=== PATIENT | male | born 1960 | race Caucasian/White ===

== ENCOUNTER 2023-07-22 12:25 | Outpatient (OUT) | payer OTHER, SELFPAY ==
--- NOTE | 2023-07-22 12:51 | CT_ITS ---
[address] [address] Patient Name: ASHLEY BERKOWITZ MRN: [id number] date: 1960 Sex: M Assigned Patient Location: CT Current Patient Location: CT Accession/Order Number: [id number] Exam Date: 07/22/2023 13:10 Report Date: 07/22/2023 14:39 At the request of: NON-STAFF PHYSICIAN Procedure: CT angio neck EXAMINATION: CT angio neck HISTORY: Stenosis of right carotid artery I65.21 COMPARISON: No relevant comparison available. TECHNIQUE: Multiplanar CT imaging without and with IV contrast. Multi-planar/3-D imaging to optimize visualization of vascular anatomy. Percent stenosis is based on NASCET criteria. Dose reduction techniques were achieved by using automated exposure control and/or adjustment of mA and/or kV according to patient size and/or use of iterative reconstruction technique. FINDINGS: RIGHT INTERNAL CAROTID: Marked atherosclerotic narrowing of bulb and proximal ICA with near-complete occlusion within the proximal ICA. EXTERNAL CAROTID: No hemodynamically significant stenosis or dissection. COMMON CAROTID: No hemodynamically significant stenosis or dissection. VERTEBRAL: No hemodynamically significant stenosis or dissection. LEFT INTERNAL CAROTID: Moderate-marked atherosclerotic narrowing of bulb and proximal ICA. EXTERNAL CAROTID: No hemodynamically significant stenosis or dissection. COMMON CAROTID: No hemodynamically significant stenosis or dissection. VERTEBRAL: No hemodynamically significant stenosis or dissection. OTHER: Multilevel marked degenerative changes of cervical spine resulting in central canal and foramen narrowing. CT/CT angio neck IMPRESSION: 1. Marked atherosclerotic narrowing of right proximal internal carotid artery with greater than 70% stenosis (suspect closer to 90% stenosis). 2. Moderate-marked atherosclerotic narrowing of left proximal internal carotid artery; suspect 60-70%. Electronically authenticated by: BRIE TOVAR Date: 07/22/2023 14:39
[2023-07-22 12:55] LABS: Estimated GFR (African America >60 (>=60); Estimated GFR (Non-African Ame >60 (>=60)
== END 2023-07-22 12:26 | disposition home or self-care (01) ==
LOC: CT 12:25
PROVIDERS: PCP Internal Medicine
DX: Z01.818 Encounter for other preprocedural examination (principal); I65.21 Occlusion and stenosis of right carotid artery
CPT/HCPCS: 36415; 70498; 82565; Q9967

== ENCOUNTER 2023-11-23 09:32 | Outpatient (OUT) | payer OTHER, SELFPAY ==
--- OUTSIDE RECORDS SUMMARY | 2023-11-23 09:50 | XMS_ITS | CCD ---
Author Organization [facility] Care Team Providers Care Supervisor [address] Name Role Phone DO Young Kruse Jr Attending Provider DO Young Kruse Jr Attending Provider NO FAMILY, PHYSICIAN Primary Care Provider Unava ilable Young Kruse Jr Admitting Unavailable NO FAMILY, PHYSICIAN Primary Care Unavailable Young Kruse Jr Attending Unavailable NO FAMILY, PHYSICIAN Primary Care Unavailable Young Kruse Jr Attending Unavailable Young Kruse Jr Admitting Unavailable NO FAMILY, PHYSICIAN Primary Care Unavailable Young Kruse Jr Attending Unavailable Young Kruse Jr Admitting Unavailable ANTONI, HARDIK Garza Attending Unavailable HILL, HARDIK Garza Referring Unavailable HILL, HARDIK Garza Attending Unavailable HILL, HARDIK Garza Referring Unavailable STOIBERMAIRA Referring Unavailable VALEDANDRE Attending Unavailable HILL, HARDIK Garza Attending Unavailable HILL, HARDIK Garza Referring Unavailable HILL, HARDIK Garza Attending Unavailable HILL, HARDIK Garaz Referring Unavailable CLINT, ADRIENNE Morley Attending Unavailable ADRIENNE JARAMILLO Referring Unavailable VALEDANDRE RINCON Attending Unavailable NAZZAL, GABRIELA Referring Unavailable MARYELLEN LOYOLA Attending Unavailable NABERNA, GABRIELA Attending Unavailable PARTH TESFAYE Referring Unavailable PARTH TESFAYE Referring Unavailable NAZZAL, GABRIELA Admitting Unavailable NABERNA, GABRIELA Attending Unavailable TESFAYEPARTH BROOKE Referring Unavailable TESFAYEPARTH BROOKE Attending Unavailable MARYELLEN LOYOLA Attending Unavailable MARYELLEN LOYOLA Referring Unavailable NAZZAL, GABRIELA Referring Unavailable Medications Current Medications Medication Drug Class(es) Dates Sig (Normalized) Sig (Original) atorvastatin 10 mg oral tablet (2 sources) HMG-CoA Reductase Inhibitor Start: 08-30-2017 take 10 mg by mouth once daily Atorvastatin Active 10 MG PO Daily August 30, 2017 12:00am colchicine 0.6 mg oral tablet (2 sources) Start: 08-30-2017 take 1 tablet by mouth twice daily Colchicine (Gout) (Colcrys) 0.6 mg tablet Active 0.6 MG PO Twice daily August 30, 2017 12:00am dexamethasone 0.001 mg/mg / neomycin 0.0035 mg/mg / polymyxin b 10 unt/mg ophthalmic ointment (2 sources) Aminoglycoside Antibacterial, Polymyxin-class Antibacterial, Corticosteroid Start: 08-30-2017 take 1 [IU] into the eye(s) three times daily Neomycin-Polymyxi n B-Dexameth Active 1 UNIT OPHTHALMIC Three times daily August 30, 2017 12:00am indomethacin 75 mg extended release oral capsule (2 sources) Nonsteroidal Anti-inflammatory Drug Start: 08-30-2017 take 75 mg by mouth once daily Indomethacin Active 75 MG PO Daily August 30, 2017 12:00am latanoprost 0.05 mg/ml ophthalmic solution (2 sources) Prostaglandin Analog Start: 08-30-2017 take 1 drop(s) into the eye(s) once daily Latanoprost Active 1 DROPS OPHTHALMIC Daily August 30, 2017 12:00am lisinopril 30 mg oral tablet (2 sources) Angiotensin Converting Enzyme Inhibitor Start: 08-30-2017 take 30 mg by mouth once daily Lisinopril Active 30 MG PO Daily August 30, 2017 12:00am metFORMIN hydrochloride 500 mg oral tablet (2 sources) Biguanide Start: 08-30-2017 take 500 mg by mouth twice daily Metformin Active 500 MG PO Twice daily August 30, 2017 12:00am Timolol Maleate (2 sources) beta-Adrenergic Massimo Start: 08-30-2017 take 1 drop(s) into the eye(s) twice daily Timolol Maleate Active 1 DROPS OPHTHALMIC Twice daily August 30, 2017 12:00am Completed/Discontinued Medications Medication Drug Class(es) Dates Sig (Normalized) Sig (Original) ciprofloxacin 0.003 mg/mg ophthalmic ointment (2 sources) Quinolone Antimicrobial Start: 08-30-2017 End: 09-01-2017 Ciprofloxacin Hcl (Ciloxan) 0.3 % ointment Discontinued 1 APPLIC OPHTHALMIC Three times daily 3.5 2 August 30, 2017 12:00am September 01, 2017 12:01am ketorolac tromethamine 4 mg/ml ophthalmic solution (2 sources) Nonsteroidal Anti-inflammatory Drug, Cyclooxygenase Inhibitor Start: 08-30-2017 End: 09-02-2017 Ketorolac (Acular Ls) 0.4 % drops Discontinued 1 DROPS OPHTHALMIC Q6H 10 3 August 30, 2017 12:00am September 02, 2017 12:01am Problems Active Problems Problem Classification Problem Date Documented Da te Episodic/Chronic Occlusion or stenosis of precerebral arteries (4 sources) Occlusion and stenosis of bilateral carotid arteries; Translations: [Occlusion and stenosis of right carotid artery] Onset: 09-07-2023 Chronic Other lower respiratory disease (2 sources) Shortness of breath; Translations: [Shortness of breath] Onset: 09-07-2023 Episodic Peripheral and visceral atherosclerosis (2 sources) Peripheral vascular disease, unspecified; Translations: [Peripheral vascular disease, unspecified] Onset: 06-15-2023 Chronic Unclassified (1 source) Idiopathic chronic gout, right elbow, with tophus (tophi); Translations: [Idiopathic chronic gout, right elbow, with tophus (tophi)] Onset: 02-12-2023 Unclassified (1 source) Idiopathic chronic gout, left elbow, with tophus (tophi); Translations: [Idiopathic chronic gout, left elbow, with tophus (tophi)] Onset: 12-05-2022 Past or Other Problems Problem Classification Problem Date Documented Da te Episodic/Chronic Residual codes; unclassified (2 sources) Localized edema; Translations: [Localized edema] Onset: 06-15-2023 Episodic Results Test Name Value Interpretation Reference Range Facility 36on 11-20-2023 36 Maryellen said no, he will not require this. [facility] 36on 11-19-2023 36 Patient called to as k if he needed an antibiotic for teeth cleaning? His appointment is Thursday. 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 [facility] Telephoneon 11-19-2023 Telephone [phone] Ashley Berkowitz 1960 M Date Provider Department Center 11/19/[address] [facility] No family history on file [facility] Follow-Upon 10-08-2023 Follow-Up [id number] Ashley Berkowitz 1960 M Date Provider Department Center 10/08/[address] [facility] No family history on file Level of Service:14180 [place] POSTOP FOLLOW UP VISIT RELATED TO ORIGINAL PX Reason for Visit and Comments: Follow-up [310505] [facility] Clinical Supporton Clinical Support [id number] Ashley Berkowitz 1960 M Date Provider Department Center 10/07/2023 [id number] ULTRASOUND ROOM [facility] No family history on file [facility] Follow-Upon 09-17-2023 Follow-Up [id number] Ashley Berkowitz 1960 M Date Provider Department Center 09/17/2023 Venkat-MARYELLEN LOYOLA [facility] No family history on file Level of Service:95341 [place] POSTOP FOLLOW UP VISIT RELATED TO ORIGINAL PX [facility] 30on 09-08-2023 30 Problem: Pain - Adul t Goal: Verbalizes/displays adequate comfort level or baseline comfort level 09/08/2023 1640 by Milagros Vyas RN Outcome: Adequate for Discharge 09/08/2023 1133 by Milagros Vyas RN Outcome: Progressing Problem: Safety - Adult Goal: Free from fall injury 09/08/2023 1640 by Milagros Vyas RN Outcome: Adequate for Discharge 09/08/2023 1133 by Milagros Vyas RN Outcome: Progressing Problem: Discharge Planning Goal: Discharge to home or other facility with appropriate resources 09/08/2023 1640 by Milagros Vyas RN Outcome: Adequate for Discharge 09/08/2023 1133 by Milagros Vyas RN Outcome: Progressing Problem: Chronic Conditions and Co-morbidities Goal: Patient's chronic conditions and co-morbidity symptoms are monitored and maintained or improved 09/08/2023 1640 by Milagros Vyas RN Outcome: Adequate for Discharge 09/08/2023 1133 by Milagros Vyas RN Outcome: Progressing [facility] 30 Problem: Pain - Adul t Goal: Verbalizes/displays adequate comfort level or baseline comfort level Outcome: Progressing Problem: Safety - Adult Goal: Free from fall injury Outcome: Progressing Problem: Discharge Planning Goal: Discharge to home or other facility with appropriate resources Outcome: Progressing Problem: Chronic Conditions and Co-morbidities Goal: Patient's chronic conditions and co-morbidity symptoms are monitored and maintained or improved Outcome: Progressing [facility] 30 Daily Case Managemen t Update Multidisciplinary rounds have been completed. Barriers to Discharge: 09/07-POD 1 TCAR, had small hematoma post op and was also on cardene which has been weaned off. Would anticipate discharge in the next couple days-- should be no needs. cb Diet: Dietary Orders (From admission, onward) Start Ordered 09/07/231806 Regular Diet Diet effective now Comments: HOLD FOR NOW Question: Room Service? Answer: Yes 09/07/231806 Physician Expected Discharge Date: 09/08/2023 Discharge Delays: PT Six Click Score: 14 OT Six Click Score: PT Recommendations: OT Recommendations: New Consults: Consult Orders (From admission, onward) Start Ordered 09/07/231805 Inpatient Consult to SICU Once Provider: (Not yet assigned) Question Answer Comment [facility] SICU TEAM Reason for Consult? Hypertension following TCAR - SBP goal 100-140 Level of Consultation Consultation and Management 09/07/231804 Normal [facility] BASIC METABOLIC PANELon 08-28 Anion gap [Moles/Vol] 11 mmol/L Normal 7-20 [facility] Comment on above: Performed By: #### L [id number] #### [facility] (AKER) [address] [place] [address] Calcium [Mass/Vol] 8.2 mg/dL Low 8.6-10.3 [facility] Comment on above: Performed By: #### L [id number] #### [facility] (BEAKER) [address] [place] [address] Chloride [Moles/Vol] 105 mmol/L Normal 98-107 [facility] Comment on above: Performed By: #### L [id number] #### [facility] (BEAKER) [address] [place] [address] CO2 [Moles/Vol] 25 mmol/L Normal 21-31 [facility] Comment on above: Performed By: #### L [id number] #### [facility] (BEAKER) [address] [place] [address] Creatinine [Mass/Vol] 0.77 mg/dL Normal 0.70-1.30 [facility] Comment on above: Performed By: #### L [id number] #### [facility] ([facility]) [address] [place] [address] GLOMERULAR FILTRATION RATE ML/MIN/1.73 SQ M.PREDICTED 100.0 mL/min/1.73m*2 Normal >60.0 [facility] Comment on above: Result Comment: The [facility]???s estimated glomerular filtration rate (eGFR) will no longer include consideration of race in its calculation. The National Kidney Foundation???s eGFR Task Force developed new recommendations for the estimation of the glomerular filtration rate in the [place] They recommend immediate implementation of the new equation refit without the race variable in all laboratories because the calculation does not include race. In addition to not including race in the calculation and reporting, it included diversity in its development, and has acceptable performance characteristics and potential consequences that do not disproportionately affect any one group of individuals. Performed By: #### L [id number] #### [facility] ([facility]) [address] [place] [address] Glucose [Mass/Vol] 113 mg/dL High 70-100 [facility] Comment on above: Performed By: #### L [id number] #### [facility] ([facility]) [address] [place] [address] Potassium [Moles/Vol] 4.4 mmol/L Normal 3.5-5.1 [facility] Comment on above: Performed By: #### L [id number] #### [facility] ([facility]) [address] [place] [address] Sodium [Moles/Vol] 137 mmol/L Normal 136-145 [facility] Comment on above: Performed By: #### L [id number] #### [facility] ([facility]) [address] [place] [address] Urea nitrogen [Mass/Vol] 19 mg/dL Normal 7-25 [facility] Comment on above: Performed By: #### L [id number] #### [facility] ([facility] [address] [place] [address] UREA NITROGEN/CREATININE (MASS RATIO) IN SER/PLAS 24.7 Normal [facility] Comment on above: Performed By: #### L [id number] #### [facility] ([facility]) [address] [place] [address] CBCon 09-08-2023 Erythrocyte distribution width (RBC) [Ratio] 13.6 % Normal 11.5-15.0 [facility] Comment on above: Performed By: #### L [id number] #### [facility] ([facility]) [address] [place] [address] ERYTHROCYTE MEAN CORPUSCULAR HEMOGLOBIN CONCENTRATION (G/DL) BY AUTOMATED 33.9 g/dL Normal 32.0-35.0 [facility] Comment on above: Performed By: #### L [id number] #### [facility] ([facility]) [address] [place] [address] Hematocrit (Bld) [Volume fraction] 28.6 % Low 39.0-55.0 [facility] Comment on above: Performed By: #### L [id number] #### [facility] ([facility]) [address] [place] [address] Hemoglobin (Bld) [Mass/Vol] 9.7 g/dL Low 13.0-17.0 [facility] Comment on above: Performed By: #### L [id number] #### [facility] ([facility]) [address] [place] [address] MCH (RBC) [Entitic mass] 32.1 pg Normal 27.0-33.0 [facility] Comment on above: Performed By: #### L [id number] #### [facility] [address] [place] [address] MCV (RBC) [Entitic vol] 94.7 fL Normal 82.0-98.0 [facility] Comment on above: Performed By: #### L [id number] #### [facility] [address] [place] [address] PLATELETS (10*3/UL) IN BLOOD AUTOMATED COUNT 181 10*3/uL Normal 150-400 [facility] Comment on above: Performed By: #### L [id number] #### [facility] ([facility]) [address] [place] [address] RBC (Bld) [#/Vol] 3.02 10*6/uL Low 4.20-5.70 [facility] Comment on above: Performed By: #### L [id number] #### [facility] ([facility]) [address] [place] [address] WBC (Bld) [#/Vol] 5.58 10*3/uL Normal 4.00-10.60 [facility] Comment on above: Performed By: #### L [id number] #### [facility] ([facility]) [address] [place] [address] POCT GLUCOSE METER UNSOLICIT ED RESULTSon 09-08-2023 Glucose [Mass/Vol] 127 mg/dL High 70-105 [facility] Comment on above: Order Comment: Waive d Testing in the ED is performed under the ED CLIA certificate #[id number]. Result Comment: snov ak3 Performed By: #### L [id number] ####[facility] ([facility] [place] [address] Glucose [Mass/Vol] 110 mg/dL High 70-105 [facility] Comment on above: Order Comment: Waive d Testing in the ED is performed under the ED CLIA certificate #[id number]. Result Comment: snov ak3 Performed By: #### L [id number] #### [facility] ([facility]) [address] [place] [address] BASIC METABOLIC PANELon 08-28 Anion gap [Moles/Vol] 12 mmol/L Normal 7-20 [facility] Comment on above: Performed By: #### L [id number] #### [facility] ([facility] [address] [place] [address] Calcium [Mass/Vol] 8.7 mg/dL Normal 8.6-10.3 [facility] Comment on above: Performed By: #### L [id number] #### [facility] ([facility]) [address] [place] [address] Chloride [Moles/Vol] 105 mmol/L Normal 98-107 [facility] Comment on above: Performed By: #### L [id number] #### [facility] ([facility] [address] [place] [address] CO2 [Moles/Vol] 23 mmol/L Normal 21-31 [facility] Comment on above: Performed By: #### L [id number] #### [facility] ([facility] [address] [place] [address] Creatinine [Mass/Vol] 0.69 mg/dL Low 0.70-1.30 [facility] Comment on above: Performed By: #### L [id number] #### [facility] ([facility] [address] [place] [address] GLOMERULAR FILTRATION RATE ML/MIN/1.73 SQ M.PREDICTED 103.3 mL/min/1.73m*2 Normal >60.0 [facility] Comment on above: Result Comment: The [facility]???s estimated glomerular filtration rate (eGFR) will no longer include consideration of race in its calculation. The National Kidney Foundation???s eGFR Task Force developed new recommendations for the estimation of the glomerular filtration rate in the [place] They recommend immediate implementation of the new equation refit without the race variable in all laboratories because the calculation does not include race. In addition to not including race in the calculation and reporting, it included diversity in its development, and has acceptable performance characteristics and potential consequences that do not disproportionately affect any one group of individuals. Performed By: #### L [id number] #### [facility] ([facility]) [address] [place] [address] Glucose [Mass/Vol] 135 mg/dL High 70-100 [facility] Comment on above: Performed By: #### L [id number] #### [facility] ([facility] [address] [place] [address] Potassium [Moles/Vol] 4.4 mmol/L Normal 3.5-5.1 [facility] Comment on above: Performed By: #### L [id number] #### [facility] (BEAKER) [address] [place] [address] Sodium [Moles/Vol] 136 mmol/L Normal 136-145 [facility] Comment on above: Performed By: #### L [id number] #### [facility] (BEAKER) [address] [place] [address] Urea nitrogen [Mass/Vol] 13 mg/dL Normal 7-25 [facility] Comment on above: Performed By: #### L [id number] #### [facility] [address] [place] [address] UREA NITROGEN/CREATININE (MASS RATIO) IN SER/PLAS 18.8 Normal [facility] Comment on above: Performed By: #### L [id number] #### [facility] (BEAKER) [address] [place] [address] CBCon 09-07-2023 Erythrocyte distribution width (RBC) [Ratio] 13.2 % Normal 11.5-15.0 [facility] Comment on above: Performed By: #### L [id number] #### [facility] (BEAKER) [address] [place] [address] ERYTHROCYTE MEAN CORPUSCULAR HEMOGLOBIN CONCENTRATION (G/DL) BY AUTOMATED 34.3 g/dL Normal 32.0-35.0 [facility] Comment on above: Performed By: #### L [id number] #### [facility] (BEAKER) [address] [place] [address] Hematocrit (Bld) [Volume fraction] 33.5 % Low 39.0-55.0 [facility] Comment on above: Performed By: #### L [id number] #### [facility] (BEAKER) [address] [place] [address] Hemoglobin (Bld) [Mass/Vol] 11.5 g/dL Low 13.0-17.0 [facility] Comment on above: Performed By: #### L [id number] #### [facility] ([facility] [address] [place] [address] MCH (RBC) [Entitic mass] 32.0 pg Normal 27.0-33.0 [facility] Comment on above: Performed By: #### L [id number] #### [facility] ([facility] [address] [place] [address] MCV (RBC) [Entitic vol] 93.3 fL Normal 82.0-98.0 [facility] Comment on above: Performed By: #### L [id number] #### [facility] ([facility] [address] [place] [address] PLATELETS (10*3/UL) IN BLOOD AUTOMATED COUNT 193 10*3/uL Normal 150-400 [facility] Comment on above: Performed By: #### L [id number] #### [facility] ([facility] [address] [place] [address] RBC (Bld) [#/Vol] 3.59 10*6/uL Low 4.20-5.70 [facility] Comment on above: Performed By: #### L [id number] #### [facility] ([facility] [address] [place] [address] WBC (Bld) [#/Vol] 7.37 10*3/uL Normal 4.00-10.60 [facility] Comment on above: Performed By: #### L [id number] #### [facility] ([facility] [address] [place] [address] on 09-07-2023 --- Attestation signed by Nikos Manrique MD at 09/08/2023 6:43 AM I personally saw and examined the patient on the same date of service as resident/fellow Dr. Avalos. I discussed the findings and therapeutic plan with the resident/fellow Dr. Avalos. I agree with the documentation, except for any edits/updates below. Teaching Physician's Revisions: none Nikos Manrique MD Surgical Intensive Care Unit Consult Note Reason For Consult Post-operative management for TCAR Referring Physician: Dr. Butler Date and time of consultation: 09/07/23 Chief Complaint: Critical Care Management HPI: 63 y.o. year old male who presented with R carotid stenosis >90% of R ICA. Pt went to OR today for transcarotid arterial revascularization. No intraoperative complications. Neck circumference pre-op was 53 cm and now post-op is 55.5 cm due to a hematoma at the incision site. Patient was evaluated in the SICU - on 2 L NC, cardene ggt at 15 mg/hr, and c/o neck pain at the surgical site. However, hematoma has since decreased in size since initially coming out of the OR. Review of Systems: General: No For Chills, Fatigue, Fever, recent weight loss or weight gain Head/Neck: Dysphagia, no blurry vision, tinnitus, headache Respiratory: No Cough, Shortness Of Breath, Or Wheezing Cardiovascular: No Chest Pain Or Dyspnea On Exertion Gastrointestinal: No Abdominal Pain, Nausea, Vomiting Or Diarrhea. No Hematochezia Genito-Urinary: No Dysuria, Trouble Voiding, Or Hematuria Musculoskeletal: No Gait Disturbance, Joint Pain, Weakness Endocrine: no heat or cold intolerance, no hyperglycemia, no polyuria Neurological: No TIA Or Stroke Symptoms, Dizziness, Confusion, Numbness/Tingling, Visual Changes Psych: No history of depression, anxiety or substance abuse Dermatological: No Skin Changes, Rash, Nail Or Hair Changes History: The following information was obtained through chart review as the patient was unable to provide information due to emergency nature and/or medical condition Past Medical History: has a past medical history of Arthritis, Asthma, Blindness, Carotid stenosis, right, Diabetes mellitus (CMS/HCC), Family history of factor V Leiden mutation, Glaucoma, Gout, Hyperlipidemia, Hypertension, OA (osteoarthritis), Pneumonia, Seasonal allergies, Sleep apnea, and Venous insufficiency. Past Surgical History: has a past surgical history that includes Replacement total hip lateral position (Left); Elbow Debridement (Bilateral); Elbow surgery (Bilateral); Colonoscopy; Knee surgery (Right); and Liberty tooth extraction. Allergies: Patient has no known allergies. Home Medications: Medications Prior to Admission Medication Sig Dispense Refill Last Dose allopurinol (Zyloprim) 100 mg tablet TAKE 2 TABLETS BY MOUTH IN THE MORNING Past Week aspirin 81 mg EC tablet Take 81 mg by mouth in the morning. Past Week clopidogrel (Plavix) 75 mg tablet Take 75 mg by mouth in the evening. Past Week latanoprost (Xalatan) 0.005 % ophthalmic solution Administer 1 drop into both eyes at bedtime. 09/06/2023 lisinopril 30 mg tablet Take 30 mg by mouth in the morning. Past Week metFORMIN (Glucophage) 500 mg tablet Take 500 mg by mouth with breakfast and with evening meal. Past Week rosuvastatin (Crestor) 10 mg tablet 10 mg in the morning. Past Week Social History: reports that he has never smoked. He has quit using smokeless tobacco. His smokeless tobacco use included snuff. He reports current alcohol use. He reports that he does not currently use drugs. Family History: pulled available information in [facility] from previous visits No family history on file. Objective Vitals: BP: (167)/(79) 167/79 (09/06 934) Temp: [36.2 ???C (97.2 ???F)] 36.2 ???C (97.2 ???F) (09/06 934) Temp Source: Temporal (09/06 934) Heart Rate: [62] 62 (09/06 934) Resp: [14] 14 (09/06 934) SpO2: [99 %] 99 % (09/06 934) Height: [188 cm (6' 2 )] 188 cm (6' 2 ) (06/10 0935) Weight: [120 kg (265 lb 6.9 oz)] 120 kg (265 lb 6.9 oz) (09/06 0935) No data recorded No intake/output data recorded. Physical Exam: General: Awake, Alert, and No acute distress Head: Pt tolerating oral secretions Eyes: PERRL EOMI Neurologic: Alert And Oriented to self, place and time, Moving Extremities and Following Commands, CN 2-12 Grossly Intact, and GCS 15 Neck: Hematoma to R side of neck at incision site Lungs: Clear to Auscultation Bilaterally With Normal Work Of Breathing . Pt on 2L of O2 per NC Chest Wall: Chest Rise Symmetrical Cardiovascular: Regular rate and rhythm : Sofia in place draining yellow urine Skin: Warm And Dry and Normal For Ethnicity Labs: Recent Results (from the past 12 hour(s)) POCT glucose meter Collection Time: 09/07/23 9:45 AM Result Value Ref Ra (more content not included)... Normal [facility] HP [facility] Vascular Surgery HISTORY & PHYSICAL History of Present Illness: Ashley Berkowitz is a 63 y.o. male with a PMH of right carotid artery stenosis with blindness in the right eye. Patient found to have >90% stenosis of the right ICA. Patient presents for a transcarotid arterial revascularization, possible endarterectomy No issue since seen in clinic. Patient has been taking plavix for past week Review of Systems Constitutional: Negative for activity change, appetite change, fatigue and fever. Eyes: Positive for visual disturbance. Respiratory: Negative for apnea, chest tightness and shortness of breath. Cardiovascular: Negative for chest pain, palpitations and leg swelling. Gastrointestinal: Negative for abdominal distention, abdominal pain, constipation, diarrhea, nausea and vomiting. Skin: Negative for color change, pallor and rash. Past Medical History: Diagnosis Date Arthritis Asthma Blindness right eye Carotid stenosis, right Diabetes mellitus (CMS/HCC) Family history of factor V Leiden mutation patient unsure if he has Glaucoma Gout Hyperlipidemia Hypertension OA (osteoarthritis) Pneumonia Seasonal allergies Sleep apnea Venous insufficiency Past Surgical History: Procedure Laterality Date COLONOSCOPY ELBOW DEBRIDEMENT Bilateral ELBOW SURGERY Bilateral KNEE SURGERY Right REPLACEMENT TOTAL HIP LATERAL POSITION Left WISDOM TOOTH EXTRACTION No Known Allergies Current Facility-Administered Medications: lactated Ringer's infusion, 30 mL/hr, intravenous, Continuous, Krystian Carey, DO Insert peripheral IV, , , Once AND Saline lock IV, , , Once AND sodium chloride flush 10 mL, 10 mL, intravenous, q8h PRN, Krystian Carey, Social History Socioeconomic History Marital status: Spouse name: Not on file Number of children: Not on file Years of education: Not on file Highest education level: Not on file Occupational History Not on file Tobacco Use Smoking status: Never Smokeless tobacco: Former Types: Snuff Substance and Sexual Activity Alcohol use: Yes Drug use: Not Currently Sexual activity: Not on file Other Topics Concern Not on file Social History Narrative Not on file Social Determinants of Health Financial Resource Strain: Not on file Food Insecurity: Not on file Transportation Needs: Not on file Physical Activity: Not on file Stress: Not on file Social Connections: Not on file Intimate Partner Violence: Unknown (05/25/2023) [place] Safety [employer] [place] Fear of Current or Ex-Partner: Not on file Emotionally Abused: Not on file Physically Abused: Not on file Sexually Abused: Not on file Physically or Sexually Abused: Not on file Housing Stability: Not on file No family history on file. Physical Exam: Vital Signs: There were no vitals taken for this visit. Admission Weight: Physical Exam Constitutional: General: He is not in acute distress. Appearance: Normal appearance. He is not ill-appearing. HENT: Head: Normocephalic and atraumatic. Cardiovascular: Rate and Rhythm: Normal rate and regular rhythm. Pulmonary: Effort: Pulmonary effort is normal. No respiratory distress. Abdominal: General: Abdomen is flat. Palpations: Abdomen is soft. Skin: General: Skin is warm and dry. Neurological: General: No focal deficit present. Mental Status: He is alert and oriented to person, place, and time. Labs: Lab Results Component Value Date WBC 6.38 08/20/2023 HGB 12.9 (L) 08/20/2023 HCT 38.9 (L) 08/20/2023 MCV 94.6 08/20/2023 PLT 232 08/20/2023 Lab Results Component Value Date CALCIUM 9.6 08/20/2023 NA 134 (L) 08/20/2023 K 4.4 08/20/2023 CO2 25 08/20/2023 CL 101 08/20/2023 BUN 19 08/20/2023 CREATININE 0.83 08/20/2023 No results found for: AMYLASE No results found for: LIPASE No results found for: ALT , AST , GGT , ALKPHOS , LABBILI Lab Results Component Value Date INR 1.01 08/20/2023 Imaging: CT transfer of outside films This order has been auto-finalized and does not contain a result. Assessment: Ashley Berkowitz is a 63 y.o.male with symptomatic right ICA stenosis >90%. Patient presents for elective transcarotid arterial revascularization, possible endarterectomy Plan: Right TCAR, possible CEA Mohsen Helm MD General Surgery Resident, PGY-2 Vascular Surgery Service 09/07/23\ Normal [facility] MAGNESIUMon 09-07-2023 Magnesium [Mass/Vol] 1.3 mg/dL Low 1.9-2.7 [facility] Comment on above: Performed By: #### L [id number] #### [facility] ([facility]) [address] [place] [address] OPNOTEon 09-07-2023 OPNOTE Transcarotid Artery Revascularization ( TCAR) (R) Operative Note Date: 09/07/2023 Location: [facility] OR Name: Ashley Gonzalez , : 1960, Diagnosis Pre-op Diagnosis * Carotid stenosis, right [I65.21] * Encounter for pre-operative examination [Z01.818] Post-op Diagnosis * Carotid stenosis, right [I65.21] * Encounter for pre-operative examination [Z01.818] Procedures Transcarotid Artery Revascularization ( TCAR) 99469 - AL TEAEC W/PATCH GRF CAROTID VERTB SUBCLAV NECK INC Surgeons * Munier Nazzal - Primary Procedure Summary Anesthesia: General ASA: III Estimated Blood Loss: Minimal Total IV Fluids: mL Drains: * None in log * Implants Type Name Action Serial No. enroute transcarotid stent Implanted Staff: Ware Tester: Devaughn Patel RN; Nihkil Mathew RN Relief Scrub: Jackelin Feliz CST Scrub Person: Nilsa Quintana CST Fruit Tester: Renaldo Foster CSA [employer] Ware Tester: Acosta Robin RN Indications: Carlos Berkowitz is an 63 y.o. male who is having surgery for Carotid stenosis, right [I65.21] Encounter for pre-operative examination [Z01.818]. Patient presenting with high degree stenosis in the right side 80 to 99% with calcification. CTA was done. 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 No weakness or any other motor dysfunction. Procedure Details: The patient was seen in the preoperative area. The risks, benefits, complications, treatment options, non-operative alternatives, expected recovery and outcomes were discussed with the patient. The possibilities of reaction to medication, pulmonary aspiration, injury to surrounding structures, bleeding, recurrent infection, the need for additional procedures, failure to diagnose a condition, and creating a complication requiring transfusion or operation were discussed with the patient. The patient concurred with the proposed plan, giving informed consent. The site of surgery was properly noted/marked if necessary per policy. The patient has been actively warmed in preoperative area. Preoperative antibiotics have been ordered and given within 1 hours of incision. Venous thrombosis prophylaxis are not indicated. Patient within the supine position the neck and groin were prepped and draped in the usual fashion. Access was made to the right common femoral vein percutaneously micro sheath then the TCAR sheath was replaced in the right groin. Ultrasound was used to evaluate the common carotid artery above the clavicle on the right side. Then a small incision was made transversely between the 2 heads of the sternocleidomastoid muscle. It was deepened down to subcutaneous tissue until identified the common carotid artery medial to the internal jugular vein. A segment of about 1 and half centimeter of the common carotid artery was isolated between umbilical tape and additional. Heparin was given to the patient after that. The TCAR sheath was inserted a wire placed in the external carotid artery. Then the micro sheath was exchanged to the sheath of the TCAR. The wire was placed after that into the internal carotid artery. ACT was checked. Reversal of blood flow was confirmed. After that a 5 x 20 balloon was inserted over the wire to dilate the internal carotid artery followed by placing an Enroute stent 9 x 40 in the internal carotid artery and extended to the common carotid artery. Angiogram was done again and no post stent dilatation was done. With note here a 5-0 Prolene was applied in the common carotid artery through which the sheath was inserted. After the stenting and angiogram the sheath was pulled out and the access site was closed with a 5-0 Prolene. Hemostasis was secured in the neck area and the sheath from the groin was removed. Then the wound was closed with 3-0 Vicryl for approximating the muscle and then the abductors neurological 3-0 Vicryl the skin was closed with 4-0 subcuticular stitch. Patient tolerated procedure well with no complications. Patient recovered from anesthesia with no deficits. Blood loss was minimal. Contrast volume 30 mL. Fluoroscopy time 6 minutes. Procedure time 45 minutes. Fluoroscopy pressure 7 minutes. Findings: Severe stenosis of the right internal carotid artery with calcification more than 90%. The distal internal carotid arteries patent however the anterior cerebral artery did not fill from the right side. The middle cerebral artery is patent. The external carotid artery is patent but there is an area of stenosis within the external carotid artery. After the stenting the stenosis was reduced to less than 10%. There is an area of the spasm at that transition segment between the stent and the artery. Conclusions Severe stenosis of the right internal carotid artery with balloon angioplasty and stenting using TCAR technique. Complications: None; p (more content not included)... Normal [facility] PHOSPHORUSon 09-07-2023 Magnesium [Mass/Vol] 3.3 mg/dL Normal 2.5-5.0 [facility] Comment on above: Performed By: #### L [id number] #### [facility] ([facility]) [address] [place] [address] POCT ACTIVATED CLOTTING TIME UNSOLICITED RESULTSon 09-07-2023 POC ACTIVATED CLOTTING TIME 166 sec High 82-152 [facility] Comment on above: Performed By: #### L [id number] ####[facility] ([facility] [place] [address] POC ACTIVATED CLOTTING TIME 229 sec High 82-152 [facility] Comment on above: Performed By: #### L [id number] #### [facility] ([facility] [address] [place] [address] POC ACTIVATED CLOTTING TIME 160 sec High 82-152 [facility] Comment on above: Performed By: #### L [id number] ####[facility] ([facility] [place] [address] POC ACTIVATED CLOTTING TIME 104 sec Normal 82-152 [facility] Comment on above: Performed By: #### L [id number] ####[facility] ([facility] [place] [address] POCT GLUCOSE METER UNSOLICIT ED RESULTSon 09-07-2023 Glucose [Mass/Vol] 143 mg/dL High 70-105 [facility] Comment on above: Order Comment: Waive d Testing in the ED is performed under the ED CLIA certificate #[id number]. Result Comment: mgle nn5 Performed By: #### L [id number] #### [facility] ([facility] [address] [place] [address] Glucose [Mass/Vol] 106 mg/dL High 70-105 [facility] Comment on above: Order Comment: Waive d Testing in the ED is performed under the ED CLIA certificate #[id number]. Result Comment: jolamide nner Performed By: #### L [id number] #### [facility] ([facility] [address] [place] [address] Glucose [Mass/Vol] 101 mg/dL Normal 70-105 [facility] Comment on above: Order Comment: Waive d Testing in the ED is performed under the ED CLIA certificate #[id number]. Result Comment: dhol as Performed By: #### L [id number] #### [facility] ([facility] [address] [place] [address] POCT PERFUSION PANEL UNSOLIC ITED RESULTSon 09-07-2023 CO2 [Moles/Vol] 23.0 mmol/L Normal 21.0-29.0 [facility] Comment on above: Performed By: #### L [id number] ####[facility] ([facility] [place] [address] Glucose [Mass/Vol] 102 mg/dL Normal 70-105 [facility] Comment on above: Performed By: #### L [id number] ####[facility] (BEAKER)[address] [place] [address] HCO3 (Bld) [Moles/Vol] 21.9 mmol/L Low 23.0-28.0 [facility] Comment on above: Performed By: #### L [id number] ####[facility] (BEAKER)[address] [place] [address] Hematocrit (Bld) [Volume fraction] 37 % Low 38-51 [facility] Comment on above: Performed By: #### L [id number] ####[facility] (BEAKER)[address] [place] [address] Hemoglobin (Bld) [Mass/Vol] 12.6 g/dL Normal 12.0-17.0 [facility] Comment on above: Performed By: #### L [id number] ####[facility] (BEAKER)[address] [place] [address] POCT BASE EXCESS -4.0 mmol/L Low -2.0-3.0 [facility] Comment on above: Performed By: #### L [id number] ####[facility] (BEAKER)[address] [place] [address] POCT IONIZED CALCIUM 1.21 mmol/L Normal 1.12-1.32 [facility] Comment on above: Performed By: #### L [id number] ####[facility] ([facility])[address] [place] [address] POCT PCO2 43.1 mmHg Normal 41.0-51.0 [facility] Comment on above: Performed By: #### L [id number] ####[facility] ([facility])[address] [place] [address] POCT PH 7.31 Normal 7.31-7.41 [facility] Comment on above: Performed By: #### L [id number] ####[facility] ([facility])[address] [place] [address] POCT PO2 150 mmHg High 80-105 [facility] Comment on above: Performed By: #### L [id number] ####[facility] ([facility])[address] [facility] [address] POCT SO2 99 % High 95-98 [facility] Comment on above: Performed By: #### L [id number] ####[facility] (BEAKER)[address] [place] [address] Potassium [Moles/Vol] 4.2 mmol/L Normal 3.5-4.9 [facility] Comment on above: Performed By: #### L [id number] ####[facility] (BEAKER)[address] [facility] [place] [address] Sodium [Moles/Vol] 137 mmol/L Low 138.0-146.0 [facility] Comment on above: Performed By: #### L [id number] ####[facility] (BEAKER)[address] [place] [address] 36on 08-31-2023 36 Left voicemail with COBY arnold to get images pushed to [facility] for review by Dr. Butler prior to TCAR. Request a call back with any questions to [phone]. Normal [facility] [id number] 08-26-2023 [id number] Nothing to Eat or Drink, including Candy, Gum, Mints, and Tobacco after Midnight the night before surgery. Hold LISINOPRIL AND METFORMIN 24 hours prior to surgery. Hold all other meds the morning of surgery. IF YOU ARE GOING HOME AFTER YOUR SURGERY OR PROCEDURE, FOR YOUR SAFETY, YOUR SURGERY WILL BE CANCELLED IF BOTH OF THE FOLLOWING ARE NOT AVAILABLE: An adult flag car driver over the age of 18, that can receive information about your care after surgery, and drive you home. A responsible adult to stay with you for 24 hours in case of an emergency. Can be same as above. The highest risk of complications is within the first 24 hours after sedation/anesthesia. Nothing to eat or drink after midnight the night before surgery. This includes gum, candy, mints, and lozenges. No alcohol, marijuana, or tobacco products including vaping for 24 hours. Please brush your teeth; don't swallow the toothpaste or water. If you use dentures, wear them but do not use paste. Please leave any other removable dental hardware at home. Do not put in contact lenses. Do not wear perfume, make-up, nail togolese, or lotions on the day of your surgery or procedure. Follow skin-prep/wipe instructions as below if required. Bring with you: *Insurance card *Photo ID *Medication list *Co-pay for visit/prescriptions If applicable: *Rescue inhalers *Green bracelet from lab *CPAP or BiPAP machine, if staying overnight *Any braces, splints, or equipment ordered preoperatively *Remote controls for implanted devices Leave at home: *Purse/Wallet/Ferrer- unless needed for co-pay *Cell phone (can leave with family/friend or place in locker if needed) *Jewelry (including piercings and wedding bands) *If not possible, ask the person who is waiting with you to keep them Children under the age of 12 will not be allowed into patient care areas. We will call you between 3pm and 4pm the day before your surgery to give you an arrival time. If you do not receive this call, have any questions, or need to make any changes, please call [phone]. Notify your surgeon if you develop any illness such as a cold, cough, fever, sore throat or vomiting between now and your surgery. Thank you for entrusting us with your care. [facility] Surgical Services Team Normal [facility] APTTon 08-20-2023 ACTIVATED PARTIAL THROMBOPLASTIN TIME IN PPP BY COAGULATION ASSAY 30.1 Seconds Normal 25.0-35.0 [facility] Comment on above: Result Comment: Clin ical significance of the APTT is questionable in the presence of heparin. Performed By: #### L [id number] #### [facility] (BEAKER) [address] [place] [address] BASIC METABOLIC PANELon 07-29 Anion gap [Moles/Vol] 12 mmol/L Normal 7-20 [facility] Comment on above: Performed By: #### L [id number] #### [facility] (BEAKER) [address] [place] [address] Calcium [Mass/Vol] 9.6 mg/dL Normal 8.6-10.3 [facility] Comment on above: Performed By: #### L [id number] #### [facility] ([facility]) [address] [place] [address] Chloride [Moles/Vol] 101 mmol/L Normal 98-107 [facility] Comment on above: Performed By: #### L [id number] #### [facility] ([facility] [address] [place] [address] CO2 [Moles/Vol] 25 mmol/L Normal 21-31 [facility] Comment on above: Performed By: #### L [id number] #### [facility] ([facility] [address] [place] [address] Creatinine [Mass/Vol] 0.83 mg/dL Normal 0.70-1.30 [facility] Comment on above: Performed By: #### L [id number] #### [facility] ([facility] [address] [place] [address] GLOMERULAR FILTRATION RATE ML/MIN/1.73 SQ M.PREDICTED 97.7 mL/min/1.73m*2 Normal >60.0 [facility] Comment on above: Result Comment: The [facility]???s estimated glomerular filtration rate (eGFR) will no longer include consideration of race in its calculation. The National Kidney Foundation???s eGFR Task Force developed new recommendations for the estimation of the glomerular filtration rate in the [place] They recommend immediate implementation of the new equation refit without the race variable in all laboratories because the calculation does not include race. In addition to not including race in the calculation and reporting, it included diversity in its development, and has acceptable performance characteristics and potential consequences that do not disproportionately affect any one group of individuals. Performed By: #### L [id number] #### [facility] ([facility] [address] [place] [address] Glucose [Mass/Vol] 90 mg/dL Normal 70-100 [facility] Comment on above: Performed By: #### L [id number] #### [facility] [address] [place] [address] Potassium [Moles/Vol] 4.4 mmol/L Normal 3.5-5.1 [facility] Comment on above: Performed By: #### L [id number] #### [facility] (BEAKER) [address] [place] [address] Sodium [Moles/Vol] 134 mmol/L Low 136-145 [facility] Comment on above: Performed By: #### L [id number] #### [facility] [address] [place] [address] Urea nitrogen [Mass/Vol] 19 mg/dL Normal 7-25 [facility] Comment on above: Performed By: #### L [id number] #### [facility] ([facility] [address] [place] [address] UREA NITROGEN/CREATININE (MASS RATIO) IN SER/PLAS 22.9 Normal [facility] Comment on above: Performed By: #### L [id number] #### [facility] [address] [place] [address] CBCon 08-20-2023 Erythrocyte distribution width (RBC) [Ratio] 13.0 % Normal 11.5-15.0 [facility] Comment on above: Performed By: #### L [id number] #### [facility] [address] [place] [address] ERYTHROCYTE MEAN CORPUSCULAR HEMOGLOBIN CONCENTRATION (G/DL) BY AUTOMATED 33.2 g/dL Normal 32.0-35.0 [facility] Comment on above: Performed By: #### L [id number] #### [facility] [facility] [address] [place] [address] Hematocrit (Bld) [Volume fraction] 38.9 % Low 39.0-55.0 [facility] Comment on above: Performed By: #### L [id number] #### [facility] (BEAKER) [address] [place] [address] Hemoglobin (Bld) [Mass/Vol] 12.9 g/dL Low 13.0-17.0 [facility] Comment on above: Performed By: #### L [id number] #### [facility] ([facility] [address] [place] [address] MCH (RBC) [Entitic mass] 31.4 pg Normal 27.0-33.0 [facility] Comment on above: Performed By: #### L [id number] #### [facility] ([facility] [address] [place] [address] MCV (RBC) [Entitic vol] 94.6 fL Normal 82.0-98.0 [facility] Comment on above: Performed By: #### L [id number] #### [facility] ([facility] [address] [place] [address] PLATELETS (10*3/UL) IN BLOOD AUTOMATED COUNT 232 10*3/uL Normal 150-400 [facility] Comment on above: Performed By: #### L [id number] #### [facility] ([facility] [address] [place] [address] RBC (Bld) [#/Vol] 4.11 10*6/uL Low 4.20-5.70 [facility] Comment on above: Performed By: #### L [id number] #### [facility] ([facility] [address] [place] [address] WBC (Bld) [#/Vol] 6.38 10*3/uL Normal 4.00-10.60 [facility] Comment on above: Performed By: #### L [id number] #### [facility] ([facility] [address] [place] [address] Labon 08-20-2023 Lab [id number] Ashley Berkowitz 1960 M Date Provider Department Center 08/20/20232244-[facility] OPD LAB RESOURCE [facility] OPD [facility] No family history on file Normal [facility] MRSA/MSSA DNA NASALon 2023 MRSA DNA Negative Normal Negative [facility] Comment on above: Order Comment: Testi ng methodology is an automated qualitative in vitro diagnostic test for the directdetection and differentiation of Staphylococcus aureus (SA) DNA and methicillin-resistant Staphylococcus aureus (MRSA) DNA from nasal swabs in patients at risk for nasal colonization. The test utilizes real-time polymerase chain reaction (PCR) for the amplification of MRSA/SA DNA and fluorogenic target-specific hybridization probes for the detection of the amplified DNA. A negative result does not preclude nasal colonization. Performed By: #### L [id number] ####[facility] (BEAKER)[address] [place] [address] MSSA DNA Negative Normal Negative [facility] Comment on above: Order Comment: Testi ng methodology is an automated qualitative in vitro diagnostic test for the directdetection and differentiation of Staphylococcus aureus (SA) DNA and methicillin-resistant Staphylococcus aureus (MRSA) DNA from nasal swabs in patients at risk for nasal colonization. The test utilizes real-time polymerase chain reaction (PCR) for the amplification of MRSA/SA DNA and fluorogenic target-specific hybridization probes for the detection of the amplified DNA. A negative result does not preclude nasal colonization. Performed By: #### L [id number] ####[facility] (BEAKER)[address] [place] [address] PROTIME-INRon 08-20-2023 INR IN PPP BY COAGULATION ASSAY 1.01 Normal 0.90-1.10 [facility] Comment on above: Result Comment: ACCC P RECOMMENDED INR FOR WARFARIN THERAPY CONDITION INR PROPHYLAXIS OF VENOUS THROMBOSIS 2-3 (HIGH-RISK SURGERY) TREATMENT OF VENOUS THROMBOSIS 2-3 TREATMENT OF PULMONARY EMBOLISM 2-3 PREVENTION OF SYSTEMIC EMBOLISM: 2-3 ACUTE MYOCARDIAL INFARCTION TISSUE HEART VALVES VALVULAR HEART DISEASE ATRIAL FIBRILLATION RECURRENT SYSTEMIC EMBOLISM MECHANICAL HEART VALVE 2.5-3.5 FROM: ORAL ANTICOAGULANTS. MECHANISM OF ACTION, CLINICAL EFFECTIVENESS, AND OPTIMAL THERAPEUTIC RANGE. CHEST 1995;108:231S-246S. Performed By: #### L [id number] #### [facility] (BEAKER) [address] [place] [address] PROTHROMBIN TIME (PT) IN PPP BY COAGULATION ASSAY 13.3 Seconds Normal 12.3-14.8 [facility] Comment on above: Performed By: #### L [id number] #### [facility] (BEAKER) [address] [place] [address] TYPE AND SCREENon 08-20-2023 AB SCREEN Negative Normal [facility] Comment on above: Performed By: #### L [id number] #### [facility] BLOOD BANK , ABO group Nom (Bld) B Normal [facility] Comment on above: Performed By: #### L [id number] #### [facility] BLOOD BANK , RH TYPE IN BLOOD Positive Normal [facility] Comment on above: Performed By: #### L [id number] #### [facility] BLOOD BANK , 36on 08-17-2023 36 Received call from patient regarding lab orders prior to 09/07/23 surgery. Patient request the orders be faxed to [facility]. Study Coordinator reprinted orders and faxed to [facility]- received confirmation sheet. Patient requested call back so card writer hand left vm confirming orders were faxed. Normal [facility] Telephoneon 08-17-2023 Telephone [id number] Ashley Berkowitz 1960 M Date Provider Department Center 08/17/[address] [facility] No family history on file [facility] Orders Onlyon 08-05-2023 Orders Only [id number] Ashley Berkowitz 1960 M Date Provider Department Center 08/05/2023 TASIA MANZO [facility]ENDO [facility] No family history on file [facility] Follow-Upon 08-04-2023 Follow-Up [id number] Ashley Berkowitz 1960 M Date Provider Department Center 08/04/2023 377-GABRIELA BUTLER [facility] No family history on file Level of Service:39920 [place] OFFICE/OUTPATIENT ESTABLISHED MOD MDM 30 MIN Normal [facility] Documentationon 06-18-2023 Documentation [id number] Ashley Berkowitz 1960 M Date Provider Department Center 06/18/2023 116-TESFAYEPARTH BROOKE [facility] No family history on file Normal [facility] Clinical Supporton Clinical Support [id number] Ashlye Berkowitz 1960 M Date Provider Department Center 06/15/2023 3413-GLV ULTRASOUND ROOM [facility] No family history on file Normal [facility] Office Visiton 06-02-2023 Follow-up visit [id number] Ashley Berkowitz 1960 M Date Provider Department Center 06/02/2023 377-GABRIELA BUTLER [facility] No family history on file Level of Service:11704 [place] OFFICE/OUTPATIENT NEW MODERATE MDM 45 MINUTES Reason for Visit and Comments: New Patient [632] Normal [facility] US CAROTID ARTERY DUPLE X BILATERALon 04-10-2023 [facility] US CAROTID ARTERY DUPLEX BILATERAL EXAM: [facility] US CAROTID ARTERY DUPLEX BILATERAL DATE:04/14/2023 11:53 AM CLINICAL HISTORY: carotid bruit COMPARISON: None available. TECHNIQUE: Grayscale, color and waveform Doppler analysis of the cervical carotid and vertebral arteries was performed. Optimization of duplex velocity criteria for diagnosis of internal carotid artery (ICA) stenosis: A report of the Intersocietal Accreditation Commission (IAC) Vascular Testing Division Carotid Diagnostic Criteria Committee. Vascular Medicine 2020; https://journals.sagepu b.com/doi/full/10.1177/ 6196086H949136301 FINDINGS: Moderate to severe plaque bilaterally near the carotid bifurcations. There is antegrade blood flow in the right and left vertebral arteries in the neck. On Doppler images, the peak systolic and end diastolic velocity measurements in centimeters per second are as follows: Right proximal common carotid artery is 80 / 13, right distal common carotid artery is 36 / 12, right proximal internal carotid artery is 88 / 40, right mid internal carotid artery is 314 / 32, right distal internal carotid artery is 76 / 25, right external carotid artery maximum systolic velocity is 141, The peak systolic internal carotid to common carotid artery ratio on the right is 3.9 left proximal common carotid artery is 79 / 25, left distal common carotid artery is 132 / 20, left proximal internal carotid artery is 119 / 48, left mid internal carotid artery is 151 / 59, left distal internal carotid artery is 137 / 52, left external carotid artery maximum systolic velocity is 149. The peak systolic internal carotid to common carotid artery ratio on the left is 1.9 IMPRESSION: GREATER THAN 70% STENOSIS BUT LESS THAN NEAR OCCLUSION INVOLVING THE RIGHT ICA. LESS THAN 50% STENOSIS INVOLVING THE LEFT ICA. Stenosis PSV EDV ICA/CCA Ratio <50% <180 cm/s <40 <2 50-69% 180-230 cm/s 40-100 2-4 > 70%, but less than near occlusion >230 cm/s >100 >4 ELECTRONICALLY SIGNED BY: Jose Galeano MD Normal Not Available Laci 02-12-2023 L --- Specimen: [id number] Received: 02/12/23 Status: ANA M Grace Num: [id number] Spec Type: Surgical Subm Dr: Young Kruse Jr, DO Tissues: A Soft Tissue/Surgical Margin-Other than Tumor,Mass,Lip or Brigida (RT ELBOW GOUTY Procedures: NIKITA, Gross/Micro L4 Age/ Patient Sex Location Account Attending Physician Ashley Berkowitz [id number] Young Kruse Jr, DO SPEC NUM: [id number] RECD: 02/12/23 STATUS: ANA M GRACE NUM: [id number] RONAN: 02/12/[address] [facility] [address]: Young Kruse Jr, DO ENTERED: 02/12/[address] [facility] [address]: Harris [facility] SPEC TYPE: Surgical DEPT: S ORDERED: HE, Gross/Micro L4 ORDERED: HE, Gross/Micro L4 Pathological Diagnosis Right elbow lesion, excision: - Histologic features are consistent with gout (see comment) Comment: Biopsy shows fibroadipose tissue exhibiting nodular aggregates and granulomatous appearance of acellular, amorphous, pale eosinophilic material surrounded by palisading arrangement of histiocytes and multinucleated giant cells. The eosinophilic material exhibit negative birefringence under polarized light. Described features are consistent with gout. Gout is a metabolic condition associated with hyperuricemia. It can be primary (sporadic or familial) or secondary. Clinical and serological correlation with serum uric acid levels is recommended. Clinical Information Right elbow gouty tophi Gross Description The specimen is received in formalin labeled with the patient's name and designated right elbow gouty tophus and consists of multiple cagle-pink to cagle-brown, heterogeneous, rubbery tissue fragments aggregating to 5.2 x 4.6 x 2.5 cm. The fragments are step sectioned. The cut surfaces show cagle-white to cagle-pink, heterogeneous, soft tissue with multiple areas of a cagle-white chalky substance. Photographic Artist sections are submitted in a single cassette labeled A1. Specimen: [id number] Received: 02/12/23 Status: ANA M Grace Num: [id number] Spec Type: Surgical Subm Dr: Young Kruse Jr, DO Tissues: A Soft Tissue/Surgical Margin-Other than Tumor,Mass,Lip or Brigida (RT ELBOW GOUTY Procedures: NIKITA Gross/Micro L4 Patient: Ashley Berkowitz [id number] (Continued) Specimen: [id number] Received: 02/12/23 (Continued) Signed (signature on file) Ozzie Sánchez MD 02/16/23 1030 Specimen: [id number] Received: 02/12/23 Status: ANA M Grace Num: [id number] Spec Type: Surgical Subm Dr: Young Kruse Jr, DO Tissues: A Soft Tissue/Surgical Margin-Other than Tumor,Mass,Lip or Brigida (RT ELBOW GOUTY Procedures: Varghese SHELTON/Micro L4 Patient: Ashley Berkowitz [id number] (Continued) Specimen: [id number] Received: 02/12/23 (Continued) CPT Codes 88319 Specimen: [id number] Received: 02/12/23 Status: ANA M Grace Num: [id number] Spec Type: Surgical Subm Dr: Young Kruse Jr, DO Tissues: A Soft Tissue/Surgical Margin-Other than Tumor,Mass,Lip or Brigida (RT ELBOW GOUTY Procedures: HE, Gross/Micro L4 Patient: Ashley Berkowitz [id number] (Continued) Signed (signature on file) Ozzie Sánchez MD 02/16/23 1030 [facility] Aerobic Cultureon 12-05-2022 Aerobic Culture LEFT ELBOW Rare normal skin alan 2 Days LEFT ELBOW No Anaerobes Isolated 3 Days LEFT ELBOW Gram Stain Result Rare White Blood Cells No Bacteria Seen PERFORMED BY: [facility] [address] [place] [address] PATHOLOGIST RESIDENTIAL FINISH CARPENTER JUAN ANTONIO ALDRICH M.D. [facility] Comment on above: Performed By: #### A ERC #### [facility] [address] Aerobic cultureOrdered By: Danielle Kruse on 12-05-2022 Bacteria identified Aer cx Nom (Unsp spec) [address] [facility] Anaerobic cultureOrdered By: Young Kruse on 12-05-2022 Bacteria identified Anaer cx Nom (Unsp spec) No Anaerobes Isolated [address] [facility] Body fluid crystal identific ation by light microscopyOrdered By: Young Kruse on 12-05-2022 Crystals LM Nom (Body fld) Monosodium urate [facility] Crystals, Fluidon 12-05-2022 Crystals, Fluid Monosodium Urate Normal Fir [facility] Comment on above: Order Comment: Body Fluid Source: Other (Name in the Site) Body Fluid Site: LEFT ELBOW Result Comment: PERF ORMED BY: [place] [address] PATHOLOGIST RESIDENTIAL FINISH CARPENTER JUAN ANTONIO ALDRICH M.D. Performed By: #### F L NISREEN #### [address] Gram stain for investigation of transfusion reactionOrdered By: Young Kruse on 12-05-2022 Microscopic observation Gram stain Nom (Unsp spec) [facility] Laci 12-05-2022 L --- Specimen: [id number] Received: 12/08/22 Status: ANA M Grace Num: [id number] Spec Type: Surgical Subm Dr: Young Kruse Jr, DO Tissues: A Soft Tissue/Surgical Margin-Other than Tumor,Mass,Lip or Brigida (LT ELBOW GOUTY Procedures: NIKITA, Gross/Micro L4 Age/ Patient Sex Location Account Attending Physician Ashley Berkowitz/Jose ROGEL [id number] Young rKuse Jr, DO SPEC NUM: [id number] RECD: 12/08/22 STATUS: ANA M GRCAE NUM: [id number] RONAN: 12/05/22- [facility] DR: Young Kruse Jr, ENTERED: 12/08/[address] [facility] [address]: Natan [facility] SPEC TYPE: Surgical DEPT: S ORDERED: NIKITA, Gross/Micro L4 ORDERED: NIKITA, Gross/Micro L4 Pathological Diagnosis Elbow, left, gouty tophi, excision: - Consistent with gout tophus Clinical Information Left elbow gouty tophi Gross Description Received in formalin labeled with the patient's name, date of and left elbow gouty tophi is a 7.0 x 6.0 x 2.3 cm aggregate of yellow-lux rubbery tissue containing lux-white chalky deposits on cut section. Photographic Artist sections are submitted in one cassette labeled A1. Microscopic Description One H E slide reviewed. The microscopic examination confirms the diagnosis. Specimen: [id number] Received: 12/08/22 Status: ANA M Grace Num: [id number] Spec Type: Surgical Subm Dr: Young Kruse Jr, DO Tissues: A Soft Tissue/Surgical Margin-Other than Tumor,Mass,Lip or Brigida (LT ELBOW GOUTY Procedures: NIKITA Gross/Osbaldo L4 Patient: Ashley Berkowitz [id number] (Continued) Specimen: [id number] Received: 12/08/22 (Continued) Signed (signature on file) Ozzie Sánchez MD 12/11/22 1025 Specimen: [id number] Received: 12/08/22 Status: ANA M Grace Num: [id number] Spec Type: Surgical Subm Dr: Young C Stepanic Jr, DO Tissues: A Soft Tissue/Surgical Margin-Other than Tumor,Mass,Lip or Brigida (LT ELBOW GOUTY Procedures: Varghese SHELTON/Osbaldo L4 Patient: Ashley Berkowitz [id number] (Continued) Specimen: [id number] Received: 12/08/22 (Continued) CPT Codes 45621 Specimen: [id number] Received: 12/08/22 Status: ANA M Grace Num: [id number] Spec Type: Surgical Subm Dr: Young Kruse Jr, DO Tissues: A Soft Tissue/Surgical Margin-Other than Tumor,Mass,Lip or Brigida (LT ELBOW GOUTY Procedures: Varghese SHELTON/Osbaldo L4 Patient: DhavalsandovalAshley [id number] (Continued) Signed (signature on file) Ozzie Sánchez MD 12/11/22 1025 [facility] Comprehensive Metabolic Pane laci 03-08-2021 Albumin [Mass/Vol] 4.6 g/dL Normal 3.6-5.[address] [facility] [employer] [employer] Comment on above: Performed By: #### U AGATHA TSH, CMP #### [facility] [address] [place], [place] [id number] Albumin/Globulin [Mass ratio] 1.8 {ratio} Normal 1.0-2.5 [facility] [employer] Comment on above: Performed By: #### U AGATHA TSH, CMP #### [facility] [address] [place], [place] [id number] ALP [Catalytic activity/Vol] 56 U/L Normal 40-129 [facility] [employer] Comment on above: Performed By: #### U AGATHA TSH, CMP #### [facility] [address] [place], [place] [id number] ALT [Catalytic activity/Vol] 18 U/L Normal 9-46 [facility] [employer] Comment on above: Result Comment: 02/27 Female reference range changed. Performed By: #### U AGATHA TSH, CMP #### [facility] [address] [facility] [place] [id number] Anion gap [Moles/Vol] 18 mmol/L Normal 12-20 [facility] Comment on above: Result Comment: Efferin ctive 04/04/2019 reference range changed. Performed By: #### U AGATHA, TSH, CMP #### [facility] [address] [facility] [place] [id number] AST [Catalytic activity/Vol] 20 U/L Normal 10-40 [facility] Comment on above: Performed By: #### U AGATHA, TSH, CMP #### [facility] [address] [facility] [place] [id number] Bilirubin [Mass/Vol] 0.51 mg/dL Normal 0.30-1.20 [facility] Comment on above: Performed By: #### U AGATHA, TSH, CMP #### [facility] [address] [place], [place] [id number] BUN/CREA 20 Ratio Normal 6-22 [facility] Comment on above: Performed By: #### U AGATHA, TSH, CMP #### [facility] [address] [facility] [place] [id number] Calcium [Mass/Vol] 9.8 mg/dL Normal 8.6-10.2 [facility] Comment on above: Performed By: #### U AGATHA, TSH, CMP #### [facility] [address] [facility] [id number] Chloride [Moles/Vol] 99 mmol/L Normal 98-107 [facility] Comment on above: Performed By: #### U AGATHA, TSH, CMP #### [facility] [address] [facility] [place] [id number] CO2 [Moles/Vol] 24 mmol/L Normal 20-31 [facility] Comment on above: Performed By: #### U AGATHA, TSH, CMP #### [facility] [address] [facility] [place] [id number] Creatinine [Mass/Vol] 0.7 mg/dL Normal 0.7-1.4 [facility] Comment on above: Performed By: #### U AGATHA, TSH, CMP #### [facility] [address] [place], [place] [id number] eGFRAA 149 mL/min/1.73m2 Normal >60 [facility] Specialist Comment on above: Performed By: #### U AGATHA, TSH, CMP #### [facility] [address] [place], [place] [id number] eGFRNAA 123 mL/min/1.73m2 Normal >60 [facility] Specialist Comment on above: Performed By: #### U AGATHA, TSH, CMP #### [facility] [address] [place], [place] [id number] Globulin (S) [Mass/Vol] 2.5 g/dL Normal 1.9-3.7 [facility] Specialist Comment on above: Performed By: #### U AGATHA, TSH, CMP #### [facility] [address] [place], [place] [id number] Glucose [Mass/Vol] 109 mg/dL High 65-99 [facility] Specialist Comment on above: Result Comment: For FASTING Glucose --- ADA reference ranges: Normal 65-99 mg/dl Prediabetes 100-125 Diabetes >/= 126 Performed By: #### U AGATHA, TSH, CMP #### [facility] [address] [place], [place] [id number] Potassium [Moles/Vol] 5.1 mmol/L Normal 3.5-5.5 [facility] Comment on above: Performed By: #### U AGATHA, TSH, CMP #### [facility] [address] [place], [place] [id number] Protein [Mass/Vol] 7.1 g/dL Normal 6.1-8.1 [facility] [employer] Comment on above: Performed By: #### U AGATHA, TSH, CMP #### [facility] [address] [place], [place] [id number] Sodium [Moles/Vol] 135 mmol/L Normal 135-146 [facility] [employer] Comment on above: Performed By: #### U AGATHA, TSH, CMP #### [facility] [address] [place], [place] [id number] Urea nitrogen [Mass/Vol] 13 mg/dL Normal 7-25 [facility] Specialist Comment on above: Performed By: #### U AGATHA, TSH, CMP #### [facility] [address] [place], [place] [id number] Hemoglobin A1Con 03-08-2021 EAG 131.24 Normal [facility] [employer] Comment on above: Performed By: #### A 1C #### [facility] [address] [place], [place] [phone] HbA1c (Bld) [Mass fraction] 6.2 % High 4.0-6.0 [facility] [employer] Comment on above: Performed By: #### A 1C #### [facility] [address] [place], [place] [id number] TSHon 03-08-2021 TSH 1.710 uIU/mL Normal 0.400-4.500 [facility] [employer] Comment on above: Performed By: #### U AGATHA, TSH, CMP #### [facility] [address] [place], [place] [id number] Uric Acidon 03-08-2021 URIC 9.1 mg/dL High 4.0-8.0 [facility] [employer] Comment on above: Result Comment: Refe rence range change 02/13/2017. Prior reference range F 2.4-5.7mg/dL. M 3.4-7.0 mg/dL. Performed By: #### U AGATHA, TSH, CMP #### [facility] [address] [place], [place] [phone] Encounters Encounter Date Encounter Type Care Provider Facility Start: 11-12-2023 End: 11-12-2023 ambulatory ADRIENNE JARAMILLO Not Available Start: 11-09-2023 End: 11-09-2023 ambulatory HARDIK DUBON Not Available Start: 10-08-2023 ambulatory MARYELLEN LOYOLA [facility] Start: 10-07-2023 ambulatory MARYELLEN LOYOLA [facility] Start: 09-17-2023 ambulatory MARYELLEN LOYOLA [facility] Start: 09-15-2023 End: 09-15-2023 ambulatory HARDIK DUBON Not Available Start: 09-08-2023 Evaluation and manag ement of inpatient PARTH TESFAYE [facility] Start: 09-07-2023 End: 09-08-2023 Encounter for other preprocedural examination [facility] Start: 09-07-2023 End: 09-08-2023 Evaluation and management of inpatient [facility] Start: 09-07-2023 End: 09-07-2023 ambulatory [facility] Start: 09-01-2023 End: 09-01-2023 ambulatory [facility] Start: 08-20-2023 ambulatory [facility] Start: 08-05-2023 Encounter for other preprocedural examination [facility] Start: 08-04-2023 ambulatory [facility] Start: 06-15-2023 ambulatory [facility] Start: 06-02-2023 ambulatory [facility] Start: 04-14-2023 End: 04-14-2023 ambulatory MAIRA MANLEY Not Available Start: 04-08-2023 End: 04-08-2023 ambulatory HARDIK DUBON Not Available Start: 04-02-2023 End: 04-02-2023 ambulatory HARDIK DUBON Not Available Start: 03-11-2023 End: 03-11-2023 ambulatory DANDRE VALE Not Available Start: 02-25-2023 End: 02-25-2023 ambulatory DANDRE VALE Not Available Start: 02-12-2023 End: 02-12-2023 ambulatory PHYSICIAN NO FAMILY Facility:[facility] Start: 12-05-2022 End: 12-05-2022 ambulatory PHYSICIAN NO FAMILY [facility] Work Phone: Start: 12-05-2022 End: 12-05-2022 Departed Referred DO Young Kruse Jr Work Phone: [facility] Work Phone: Procedures Date Procedure Procedure Detail Performing Clinician Start: 12-05-2022 Aerobic microbial culture DO Young Kruse Jr Work Phone: Start: 12-05-2022 Anaerobic microbial culture DO Young Kruse Jr Work Phone: Start: 12-05-2022 Investigation of transfusion reaction DO Young Kruse Jr Work Phone: Plan of Treatment Date Care Activity Detail Author Start: 12-05-2022 Microbial culture, b chelly fluid [facility] Start: 12-05-2022 Aerobic Culture Aerobic Culture [place] [facility] Start: 12-05-[address] [facility] Start: 12-05-2022 Microscopic observat ion [Identifier] in Unspecified specimen by Gram stain [facility] Bacteria identified in Unspecified specimen by Aerobe culture [facility] Bacteria identified in Unspecified specimen by Anaerobe culture [facility] Payers Date Payer Category Payer Unknown [id number] 2022 Self-pay [id number] 2022 Unknown [id number] 1959 Unknown [id number] 2.16.84 [id number] 1959 Unknown [id number] 2.16.84 0.1.169478.3.579.2.1259 1959 Unknown [id number] 2.16.84 0.1.165586.3.579.2.1259 1959 Unknown [id number] 2.16.84 0.1.284071.3.579.2.1259 1959 Unknown [id number] 2.16.84 0.1.099024.3.579.2.125 1959 Unknown [id number] 2.16.84 0.1.520130.3.579.2.1259 1959 Unknown [id number] 2.16.840 .1.645650.3.579.2.1259 1959 Unknown [id number] 2.16.840 .1.554157.3.579.2.125 1959 Unknown [id number] 2.16.840 .1.978114.3.579.2.1259 Unknown [id number] 2.16.8 40.1.264680.3.579.2.531 Unknown [id number] 2.16.8 40.1.841281.3.579.2.531 Unknown [id number] 2.16.8 40.1.972713.3.579.2.531 Social History Date Type Detail Facility Start: 08-30-2017 Tobacco smoking stat us TNIS Never smoked tobacco (finding) [facility] Start: 1960 Sex Assigned At Male [facility] Clinical Notes 06-02-2023 to 10-08-2023 Note Date & Type Note Facility 10-08-2023 Note Subjective Patient ID: Carlos Berkowitz is a 63 y.o. male who presents for 2 week follow up after carotid ultrasound, asking to return to work. HPI 63 year old male with a history of severe asymptomatic right carotid stenosis who presents for 1 month follow up today status post TCAR done 09/07/23. Patient did develop a large hematoma postoperatively which did not require evacuation which is resolving nicely. He has been on DAPT and denies missing doses. Patient denies any history of TIA/CVA since last visit. Denies any unilateral weakness, facial droop, dysarthria, confusion or amaurosis fugax. He had a carotid duplex prior to appointment today which demonstrated patent ICA stent on the right with 50 to 69% stenosis in the left. Review of Systems Constitutional: Negative. HENT: Negative. Eyes: Negative. Respiratory: Negative. Cardiovascular: Positive for leg swelling. Gastrointestinal: Negative. Endocrine: Negative. Genitourinary: Negative. Musculoskeletal: Negative. Skin: Negative. Allergic/Immunologic: Negative. Neurological: Negative. Hematological: Negative. Psychiatric/Behavioral: Negative. Objective Visit Vitals BP 165/71 (BP Location: Left arm, Patient Position: Sitting, BP Cuff Size: Adult) Pulse 60 Physical Exam Constitutional: General: He is not in acute distress. Appearance: Normal appearance. He is not ill-appearing. HENT: Head: Normocephalic and atraumatic. Eyes: General: No scleral icterus. Pupils: Pupils are equal, round, and reactive to light. Neck: Vascular: No carotid bruit. Comments: Right neck TCAR incision is well-healed at this time. Small hematoma underlying remaining. No continued ecchymosis to the chest. Cardiovascular: Rate and Rhythm: Normal rate and regular rhythm. Pulmonary: Effort: Pulmonary effort is normal. Breath sounds: Normal breath sounds. Musculoskeletal: Cervical back: Neck supple. Skin: General: Skin is warm and dry. Comments: Hemosiderin deposition bilaterally Neurological: General: No focal deficit present. Mental Status: He is alert and oriented to person, place, and time. Psychiatric: Mood and Affect: Mood normal. Behavior: Behavior normal. Thought Content: Thought content normal. Judgment: Judgment normal. Assessment/Plan Diagnoses and all orders for this visit: Bilateral carotid artery stenosis - Carotid duplex bilateral; Future - Patient is doing well status post TCAR on 09/06. Postoperative duplex demonstrated patent repair. His ICA stenosis on the left is stable. He remains asymptomatic - Patient completed 1 month of dual antiplatelet therapy status post TCAR. At this time he can transition back to aspirin, statin. - Follow-up in 6 months with repeat carotid duplex at that time. Diagnosis Plan 1. Bilateral carotid artery stenosis No orders of the defined types were placed in this encounter. No results found for this or any previous visit (from the past 36 hour(s)). No follow-ups on file. [facility] 09-17-2023 Note Subjective Patient ID: Carlos Berkowitz is a 63 y.o. male who presents for 1 week follow up s/p R TCAR on 09/07/23 HPI 63 year old male with a history of severe asymptomatic right carotid stenosis who presents today status post TCAR done 09/07/23. Patient did develop a large hematoma postoperatively which did not require evacuation. Patient presents today for follow-up, he has large amount of bruising from the neck extending down into the chest wall. The hematoma itself he denies any erythema or calor. Denies any dysphagia, stridor. He has been taking aspirin and Plavix and denies missing doses. Denies any unilateral weakness, facial droop, dysarthria, confusion or amaurosis fugax. Review of Systems Constitutional: Positive for activity change and chills. HENT: Negative. Eyes: Positive for pain. Respiratory: Positive for shortness of breath. Cardiovascular: Negative. Gastrointestinal: Negative. Endocrine: Negative. Genitourinary: Negative. Musculoskeletal: Positive for neck pain and neck stiffness. Skin: Positive for color change. BLE Allergic/Immunologic: Negative. Neurological: Positive for weakness. General weakness from procedure Hematological: Bruises/bleeds easily. Psychiatric/Behavioral: Negative. Objective Visit Vitals BP 134/74 (BP Location: Left arm, Patient Position: Sitting, BP Cuff Size: Adult) Pulse 71 Resp 16 Physical Exam Constitutional: General: He is not in acute distress. Appearance: Normal appearance. He is not ill-appearing. HENT: Head: Normocephalic and atraumatic. Eyes: General: No scleral icterus. Pupils: Pupils are equal, round, and reactive to light. Neck: Comments: Right TCAR incision with hematoma surrounding. No signs of infection. There is ecchymosis to the neck extending onto the chest wall. Cardiovascular: Rate and Rhythm: Normal rate and regular rhythm. Pulmonary: Effort: Pulmonary effort is normal. Breath sounds: Normal breath sounds. Musculoskeletal: Cervical back: Neck supple. Skin: General: Skin is warm and dry. Neurological: General: No focal deficit present. Mental Status: He is alert and oriented to person, place, and time. Cranial Nerves: No cranial nerve deficit. Motor: No weakness. Psychiatric: Mood and Affect: Mood normal. Behavior: Behavior normal. Thought Content: Thought content normal. Judgment: Judgment normal. Assessment/Plan Diagnoses and all orders for this visit: Bilateral carotid artery stenosis -Status post TCAR on 09/06. Discussed with patient and that the ecchymosis will continue to track down with gravity and should not be alarmed by this symptom. Unless the hematoma itself is expanding, which is unlikely at this point, they should not worry. The incision has no signs of infection at this time. Discussed that the hematoma will take sometimes a few months to resolve -Continue dual antiplatelet therapy. We discussed continuing dual antiplatelet therapy for 1 months and then reducing to single antiplatelet at that time -Follow-up in about 1 month with repeat carotid duplex prior to visit Diagnosis Plan 1. Stenosis of right carotid artery No orders of the defined types were placed in this encounter. No results found for this or any previous visit (from the past 36 hour(s)). No follow-ups on file. [facility] 09-08-2023 Note Admission Admitted 09/07/2023 for Carotid stenosis, right. Admitted for TCAR procedure. Discharge Diagnosis Encounter for pre-operative examination Discharge Disposition Home or Self Care () Discharge Medications Your medication list START taking these medications Instructions Last Dose Given Next Dose Due acetaminophen 500 mg tablet Commonly known as: Tylenol Take 2 tablets (1,000 mg) by mouth every 6 (six) hours for 15 doses. CONTINUE taking these medications Instructions Last Dose Given Next Dose Due allopurinol 100 mg tablet Commonly known as: Zyloprim Notes to patient: Gout aspirin 81 mg EC tablet Notes to patient: Heart health Take 1 tablet (81 mg) by mouth in the morning. clopidogrel 75 mg tablet Commonly known as: Plavix Notes to patient: Blood thinner, prevent clots Take 1 tablet (75 mg) by mouth in the evening. latanoprost 0.005 % ophthalmic solution Commonly known as: Xalatan lisinopril 30 mg tablet Notes to patient: High blood pressure metFORMIN 500 mg tablet Commonly known as: Glucophage Notes to patient: Diabetes rosuvastatin 10 mg tablet Commonly known as: Crestor Notes to patient: High cholesterol Where to Get Your Medications You can get these medications from any pharmacy Bring a paper prescription for each of these medications acetaminophen 500 mg tablet aspirin 81 mg EC tablet clopidogrel 75 mg tablet Activity 10 lbs for 2 weeks Diet Patient currently has no discharge diet orders Allergies Patient has no known allergies. Hospital Course Patient admitted for TCAR procedure on the right side which was done and went smoothly. However postoperatively he developed hematoma in the right side of the neck which was managed conservatively. Patient was admitted to the intensive care unit and observed. He had no neurological symptoms after the procedure. No hematoma in the right groin. He has no issues related to swallowing or breathing. Patient seen next day and discharged home on antiplatelet therapy and statins. At the time of the discharge patient had mild hematoma in the right side of the neck. No neurological deficit. Tongue was normal. Cranial nerves were within normal. Pertinent Physical Exam At Time of Discharge Physical Exam Constitutional: Appearance: Normal appearance. He is obese. HENT: Head: Normocephalic. Eyes: Extraocular Movements: Extraocular movements intact. Cardiovascular: Rate and Rhythm: Normal rate and regular rhythm. Pulses: Normal pulses. Heart sounds: No murmur heard. Pulmonary: Effort: Pulmonary effort is normal. Breath sounds: Normal breath sounds. Musculoskeletal: General: Normal range of motion. Cervical back: No rigidity or tenderness. Right lower leg: No edema. Left lower leg: No edema. Skin: Capillary Refill: Capillary refill takes less than 2 seconds. Neurological: General: No focal deficit present. Mental Status: He is alert and oriented to person, place, and time. Psychiatric: Mood and Affect: Mood normal. Behavior: Behavior normal. Thought Content: Thought content normal. Judgment: Judgment normal. Lab Results Labs Reviewed POCT GLUCOSE METER UNSOLICITED RESULTS - Abnormal Result Value Glucose POC 106 (*) Narrative: Waived Testing in the ED is performed under the ED CLIA certificate #[id number]. CBC - Abnormal Auto WBC 7.37 RBC 3.59 (*) Hemoglobin 11.5 (*) Hematocrit 33.5 (*) MCV 93.3 MCH 32.0 MCHC 34.3 RDW 13.2 Platelets 193 BASIC METABOLIC PANEL - Abnormal Sodium 136 Potassium 4.4 Chloride 105 CO2 23 BUN 13 Creatinine 0.69 (*) Glucose 135 (*) Calcium 8.7 Anion Gap 12 eGFR 103.3 BUN/Creatinine Ratio 18.8 MAGNESIUM - Abnormal Magnesium 1.3 (*) POCT GLUCOSE METER UNSOLICITED RESULTS - Abnormal Glucose POC 143 (*) Narrative: Waived Testing in the ED is performed under the ED CLIA certificate #[id number]. BASIC METABOLIC PANEL - Abnormal Sodium 137 Potassium 4.4 Chloride 105 CO2 25 BUN 19 Creatinine 0.77 Glucose 113 (*) Calcium 8.2 (*) Anion Gap 11 eGFR 100.0 BUN/Creatinine Ratio 24.7 CBC - Abnormal Auto WBC 5.58 RBC 3.02 (*) Hemoglobin 9.7 (*) Hematocrit 28.6 (*) MCV 94.7 MCH 32.1 MCHC 33.9 RDW 13.6 Platelets 181 POCT GLUCOSE METER UNSOLICITED RESULTS - Abnormal Glucose POC 110 (*) Narrative: Waived Testing in the ED is performed under the ED CLIA certificate #[id number]. POCT GLUCOSE METER UNSOLICITED RESULTS - Abnormal Glucose POC 127 (*) Narrative: Waived Testing in the ED is performed under the ED CLIA certificate #[id number]. POCT ACTIVATED CLOTTING TIME UNSOLICITED RESULTS - Abnormal Activated Clotting Time POC 166 (*) POCT ACTIVATED CLOTTING TIME UNSOLICITED RESULTS - Abnormal Activated Clotting Time POC 160 (*) POCT PERFUSION PANEL UNSOLICITED RESULTS - Abnormal SO2 POC 99 (*) Sodium POC 137 (*) Potassium POC 4.2 PO2 POC 150 (*) p (more content not included)... [facility] 09-08-2023 Note [facility] Vascular and Wound Surgery DAILY PROGRESS NOTE Subjective No acute events overnight. Hematoma improving. Denies any issues swallowing or breathing. No motorsensory issues. Yet to ambulate or eat. Off cardene Objective Vitals: Vitals: 09/08/23 0742 BP: Pulse: Resp: Temp: SpO2: 98% I/O last 3 completed shifts: In: 2458.3 (20.4 mL/kg) [I.V.:2428.3 (20.2 mL/kg); IV Piggyback:30] Out: 2645 (22 mL/kg) [Urine:2520 (0.6 mL/kg/hr); Blood:125] Weight: 120.4 kg I/O this shift: In: - Out: 650 [Urine:650] Physical Exam Physical Exam Constitutional: General: He is not in acute distress. Appearance: Normal appearance. He is not ill-appearing. Neck: Comments: Right neck hematoma, improving. Soft Cardiovascular: Rate and Rhythm: Normal rate. Pulmonary: Effort: Pulmonary effort is normal. No respiratory distress. Abdominal: General: Abdomen is flat. Palpations: Abdomen is soft. Skin: General: Skin is warm and dry. Coloration: Skin is not jaundiced. Neurological: Mental Status: He is alert. Labs: Results from last 7 days Lab Units 09/08/23 0442 09/07/23 1551 WBC AUTO 10*3/uL 5.58 7.37 HEMOGLOBIN g/dL 9.7* 11.5* HEMATOCRIT % 28.6* 33.5* PLATELETS AUTO 10*3/uL 181 193 Results from last 7 days Lab Units 09/08/23 0442 09/07/23 1551 SODIUM mmol/L 137 136 POTASSIUM mmol/L 4.4 4.4 CO2 mmol/L 25 23 BUN mg/dL 19 13 CREATININE mg/dL 0.77 0.69* Medications: acetaminophen, 1,000 mg, oral, q6h aspirin, 81 mg, oral, Daily clopidogrel, 75 mg, oral, Daily labetaloL, 5 mg, intravenous, Once rosuvastatin, 10 mg, oral, Daily lactated Ringer's, 30 mL/hr, Last Rate: Stopped (09/07/23 1900) niCARdipine, 5-15 mg/hr, Last Rate: Stopped (09/08/23 0051) Imaging: CT transfer of outside films This order has been auto-finalized and does not contain a result. Active Inpatient Problems Principal Problem: Encounter for pre-operative examination Active Problems: Carotid stenosis, right Stenosis of right carotid artery Vascular/Wound Care Assessment/Plan Ashley Berkowitz is a 63 y.o. male who is POD1 from right TCAR. Hematoma post-operatively that is improving significantly and patient is asymptomatic from it On aspirin/plavix. Will obtain carotid duplex.Recommend ambulation and diet Regular diet Carotid duplex Discharge pending US results ASA/plavix Mohsen Helm MD Vascular/Wound Service Please direct primary wound calls to: [phone] Please direct primary vascular calls to: [phone] Patient is doing well. Minimal hematoma in the right neck. No effect on breathing or swallowing. No neurological deficit. Ultrasound was done and reviewed which showed no evidence of stenosis on the right side about 60% stenosis on the left side. Discharge patient home [facility] 09-07-2023 Note Patient: Carlos Berkowitz Procedure Summary Date: 09/07/23 Room / Location: [address] / [facility] Operating Room Anesthesia Start: 1124 Anesthesia Stop: 1424 Procedures: Transcarotid Artery Revascularization ( TCAR) (Right) Carotid angiogram Diagnosis: Carotid stenosis, right Encounter for pre-operative examination (Carotid stenosis, right [I65.21]) (Encounter for pre-operative examination [Z01.818]) Surgeons: Gabriela Butler MD Responsible Provider: Lacho Osuna MD Anesthesia Type: general ASA Status: 3 Anesthesia Type: general Vitals Value Taken Time BP 148/80 09/07/23 1507 Temp 36.4 ???C (97.5 ???F) 09/07/23 1430 Pulse 67 09/07/23 1514 Resp 10 09/07/23 1514 SpO2 98 % 09/07/23 1514 Vitals shown include unvalidated device data. Anesthesia Post Evaluation Patient location during evaluation: PACU Patient participation: complete - patient participated Level of consciousness: awake and alert Pain score: 2 Pain management: adequate Multimodal analgesia pain management approach Airway patency: patent Two or more strategies used to mitigate risk of obstructive sleep apnea Cardiovascular status: hemodynamically stable Respiratory status: acceptable, room air, spontaneous ventilation and nonlabored ventilation Hydration status: euvolemic Patient is hemodynamically stable and is able to be discharged from PACU per anesthesia protocol. No notable events documented. [facility] 09-07-2023 Note Arterial Line: Date/Time: 09/07/2023 10:00 AM An arterial line was placed Procedure performed using ultrasound guidance.in the pre-op for the following indication(s): continuous blood pressure monitoring. A 20 G (size), 2 inch (length) (type) catheter was placed, Seldinger technique used , into the Right radial artery, secured by Biodisc/Biopatch, tape and Tegaderm. Events: patient tolerated procedure well with no complications. Medications Administered lidocaine (XYLOCAINE) 1 % SubQ - infiltration 5 mL - 09/07/2023 10:00:00 AM Staffing Performed: resident/MEDICAL DATA ENTRY CLERK/CAA Resident/MEDICAL DATA ENTRY CLERK: Allen Ziegler MD Performed by: Allen Ziegler MD Authorized by: Lacho Osuna MD [facility] 09-07-2023 Note Patient: Carlos Berkowitz Procedure Information Date/Time: 09/07/23 1030 Procedure: Transcarotid Artery Revascularization ( TCAR), possible Carotid Endarterectomy (Right) Location: [facility] OR [address] [place] [address] / [facility] Operating Room Surgeons: Gabriela Butler MD Relevant Problems Anesthesia (within normal limits) Cardio >4 METS denies chest pain/SOB. No previous cardiac interventions. (+) Carotid stenosis, right (+) Essential hypertension (+) Stenosis of right carotid artery (+) Venous insufficiency Endo (+) Type 2 diabetes mellitus without complication (CMS/HCC) /Renal Cr 0.83 Neuro/Psych Carotid artery stenosis, awaiting Tcar Pulmonary (within normal limits) Clinical information reviewed: Tobacco Allergies Meds Med Hx Surg Hx Fam Hx Soc Hx Physical Exam Airway Mallampati: II TM distance: >3 FB Neck ROM: full Cardiovascular - normal exam Dental - normal exam Pulmonary - normal exam Abdominal Anesthesia Plan ASA 3 general The patient is not a current smoker. Patient was not previously instructed to abstain from smoking on day of procedure. Patient did not smoke on day of procedure. intravenous induction Anesthetic plan and risks discussed with patient. Plan discussed with CAA. Additional Equipment Requests [facility] 08-04-2023 Note Subjective Patient ID: Carlos Berkowitz is a 63 y.o. male who presents for follow up to review Ct done a [place] and venous study. HPI Patient 63yr old presents with history HTN, HPL, DM. Blind in right eye. Patient presenting for evaluation of his carotid disease as well as lower extremities. He has a swelling in both lower extremities with skin color changes. Ultrasound showed reflux in both lower extremities. He is not using the regularly elastic stocking. As for his carotid he has blindness of the right eye for about 14 years which is started all of a sudden and he was told at that time most probably it is from her carotid disease. A CTA of the carotid arteries at this time showed about 90% stenosis of the right internal carotid artery and moderate stenosis of the left internal carotid artery. Arterial studies of the lower extremities were normal. He has no weakness in the upper or lower extremities. Review of Systems Constitutional: Negative. HENT: Negative. Eyes: Negative. Respiratory: Negative. Cardiovascular: Positive for leg swelling. Gastrointestinal: Negative. Endocrine: Negative. Genitourinary: Negative. Musculoskeletal: Negative. Skin: Positive for color change. Darkening in both legs Allergic/Immunologic: Negative. Neurological: Negative. Hematological: Negative. Psychiatric/Behavioral: Negative. Current Outpatient Medications on File Prior to Visit Medication Sig Dispense Refill allopurinol (Zyloprim) 100 mg tablet TAKE 2 TABLETS BY MOUTH IN THE MORNING aspirin 81 mg EC tablet Take 81 mg by mouth in the morning. latanoprost (Xalatan) 0.005 % ophthalmic solution Administer 1 drop into both eyes. lisinopril 30 mg tablet Take 30 mg by mouth in the morning. metFORMIN (Glucophage) 500 mg tablet Take 500 mg by mouth. rosuvastatin (Crestor) 10 mg tablet 10 mg in the morning. No current facility-administered medications on file prior to visit. No Known Allergies Objective Visit Vitals BP 173/67 (BP Location: Right arm, Patient Position: Sitting, BP Cuff Size: Adult) Pulse 56 Physical Exam Constitutional: Appearance: He is obese. Eyes: Pupils: Pupils are equal, round, and reactive to light. Cardiovascular: Rate and Rhythm: Normal rate and regular rhythm. Abdominal: General: Abdomen is flat. Palpations: Abdomen is soft. Musculoskeletal: General: Swelling present. Cervical back: Normal range of motion and neck supple. Skin: General: Skin is warm and dry. Neurological: General: No focal deficit present. Mental Status: He is alert and oriented to person, place, and time. Comments: Right eye blindness Psychiatric: Mood and Affect: Mood normal. Behavior: Behavior normal. Thought Content: Thought content normal. Judgment: Judgment normal. Assessment/Plan Willobtian the CTA images Will pal possible TCAR or CEA Start plavix one week before surgery No diagnosis found. No orders of the defined types were placed in this encounter. No results found for this or any previous visit (from the past 36 hour(s)). No follow-ups on file. [facility] 06-18-2023 Note Study Coordinator received noti ce from staff yesterday that patient received notice of insurance noncoverage for CTA of neck. Patient with significant carotid artery stenosis on US in need of further diagnostic testing (see visit note). Study Coordinator called CT at [place]- patient opting to have CT done at [facility] (also see visit note). Study Coordinator attempted to call [facility] radiology to determine further needs regarding this necessary diagnostic study but could not reach a person. Request passed on on to my clinic team to please call [facility] to determine needs and alert provider with further provider needs or if CT cannot be scheduled within next 1-2 weeks. [facility] 06-02-2023 Note Subjective Patient ID: Carlos Berkowitz is a 63 y.o. male who presents for new patient appointment referral from dr dubon for stenosis of right carotid artery and right carotid bruit. HPI 63 year old male PMH HTN, HPL, DM Here to as new patient for Right carotid artery stenosis- referral from PCP at [facility]. Had carotid within the last few weeks 2/2 R carotid bruit which showed 60-70% R ICA stenosis. Reports h/o loss of vision R eye remotely for which he sees opthamology but was also told at that time that TIA was suspected. Denies recent or current lateralizing sxs, no weakness/headaches/dizziness/falls. Incidentally also has LE edema. 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 Deneis LE pain or calduication sxs. Deneis CP/SOB R ICA/CCC ratio 3.9. about 70% stenosis Review of Systems Constitutional: Negative. HENT: Negative. Eyes: Negative. Respiratory: Negative. Cardiovascular: Negative. Gastrointestinal: Negative. Endocrine: Negative. Genitourinary: Negative. Musculoskeletal: Negative. Skin: Negative. Allergic/Immunologic: Negative. Neurological: Negative. Hematological: Negative. Psychiatric/Behavioral: Negative. Past medical history: Diabetes mellitus Hypertension Right eyes stroke? 15 years ago Family history: DVT with factor 5 deficiency Social history: Not smaker Current Outpatient Medications on File Prior to Visit Medication Sig Dispense Refill allopurinol (Zyloprim) 100 mg tablet TAKE 2 TABLETS BY MOUTH IN THE MORNING aspirin 81 mg EC tablet Take 81 mg by mouth in the morning. latanoprost (Xalatan) 0.005 % ophthalmic solution Administer 1 drop into both eyes. lisinopril 30 mg tablet Take 30 mg by mouth in the morning. metFORMIN (Glucophage) 500 mg tablet Take 500 mg by mouth. rosuvastatin (Crestor) 10 mg tablet 10 mg in the morning. No current facility-administered medications on file prior to visit. Objective Visit Vitals BP 136/73 (BP Location: Left arm, Patient Position: Sitting, BP Cuff Size: Adult) Pulse 98 Physical Exam Vitals reviewed. HENT: Head: Normocephalic. Mouth/Throat: Mouth: Mucous membranes are moist. Neck: Vascular: Carotid bruit present. Cardiovascular: Rate and Rhythm: Normal rate. Comments: Dp et PT diminished by palpation da Pulmonary: Effort: Pulmonary effort is normal. Musculoskeletal: General: Normal range of motion. Cervical back: Normal range of motion. Right lower leg: Edema present. Left lower leg: Edema present. Comments: Signfificant RLE hemosiderin staining with da LE edema ankle to pretib R > L, no cellulitic changes Skin: General: Skin is warm. Capillary Refill: Capillary refill takes less than 2 seconds. Neurological: General: No focal deficit present. Mental Status: He is alert and oriented to person, place, and time. Mental status is at baseline. Difficult feeling pulses in the DP and OPERATING ROOM ORDERLY but good pulses in the popliteal artery Assessment/Plan Patient has stenosis in the right carotid artery, no recent symptoms, had eyes symptoms 15 years ago Plan: asp , cresotr, CTA extracranial arteries, venous reflux #CVD with diminished pedal pulses and carotid artery stenosis -CTA neck- can be done at [facility] but will need result prior to next visit -Reflux studies and UZMA to be done here at [facility] -Possible TIA h/o w R sided vision changes remotely, no recent lateralizing sxs with 65-70% stenosis R ICA. Consideration R CEA pending CTA vs GDMT -Is on ASA and crestor. Bldgl well controlled with A1C 6.1. Nonsmoker. Is on on antihypertensives -Compression stockings- mild compression until Uzma completed. Leg elevaton and CMP exercises -RTC 2-3 weeks with all studies prior [facility] 06-02-2023 Note Subjective Patient ID: Carlos Berkowitz is a 63 y.o. male who presents for new patient appointment referral from dr dubon for stenosis of right carotid artery and right carotid bruit. HPI Review of Systems Constitutional: Negative. HENT: Negative. Eyes: Negative. Respiratory: Negative. Cardiovascular: Negative. Gastrointestinal: Negative. Endocrine: Negative. Genitourinary: Negative. Musculoskeletal: Negative. Skin: Negative. Allergic/Immunologic: Negative. Neurological: Negative. Hematological: Negative. Psychiatric/Behavioral: Negative. Objective Visit Vitals BP 136/73 (BP Location: Left arm, Patient Position: Sitting, BP Cuff Size: Adult) Pulse 98 Physical Exam Assessment/Plan No diagnosis found. No orders of the defined types were placed in this encounter. No results found for this or any previous visit (from the past 36 hour(s)). No follow-ups on file. [facility] Evaluation note No assessment information availa [facility] Work Phone: Summary Purpose Family History No Family History Records FoundNo Family History Records FoundNo Family History Records FoundNo Family History Records Found Advance Directives No Advanced Directives Records Found Advance Directive Response Recorded Date/ Time Advance Directives No August 30 8 8:19am Chief Complaint and Reason for Visit Chief Complaint L Elbow Gouty Tophi L Elbow Gouty Tophi Additional Source Comments (unrecognized sect ion and content) No Status Records FoundNo Status Records FoundNo Status Records FoundNo Status Records Found INFORMATION SOURCE (unrecogn ized section and content) DATE CREATED AUTHOR 03/09/2021 [facility] DATE CREATED AUTHOR AUTHOR'S ORGANIZ ATION 02/22/2023 [facility] DATE CREATED AUTHOR AUTHOR'S ORGANIZ ATION 11/16/2023 [facility] EPIC DATE CREATED AUTHOR AUTHOR'S ORGANIZ ATION 11/21/2023 [facility] Care Teams (unrecognized sec tion and content) Team Status: Inactive Member Role Status Dates Young Kruse Jr, DO Attending Provider Active Team Status: Active Member Role Status Dates PHYSICIAN NO FAMILY Primary Care Provider Active Team Status: Inactive Member Role Status Dates Young Kruse Jr, DO Attending Provider Active PHYSICIAN NO FAMILY Primary Care Provider Active Goals (unrecognized section and content) Goals may be documented in a n alternate sectionGoals may be documented in an alternate section FOR RECORDS PERTAINING TO PATIENTS WHO ARE OR HAVE BEEN ENROLLED IN A CHEMICAL DEPENDENCY/SUBSTANCEABUSE PROGRAM, SOME INFORMATION MAY BE OMITTED. This clinical summary was aggregated from multiple sources. Caution should be exercised in using it in the provision of clinical care. This summary normalizes information from multiple sources, and as a consequence, information in this document may materially change the coding, format and clinical context of patient data. In addition, data may be omitted in some cases. CLINICAL DECISIONS SHOULD BE BASED ON THE PRIMARY CLINICAL RECORDS. [employer] provides no warranty or guarantee of the accuracy or completeness of information in this document.
[2023-11-23 10:17] LABS: Bilirubin Urine NEGATIVE (NEGATIVE); Blood Urine NEGATIVE (NEGATIVE); Clarity Urine CLEAR (CLEAR); Color Urine LT. YELLOW (YELLOW); Glucose Urine UA NEGATIVE (NEGATIVE); Ketones Urine NEGATIVE (NEGATIVE); Leukocyte Esterase Urine NEGATIVE (NEGATIVE); Nitrite Urine NEGATIVE (NEGATIVE); Protein Urine NEGATIVE (NEG/TRACE); Specific Gravity Urine 1.015 (1.005-1.025); Urobilinogen Urine 0.2 EU/dL (0.2-1.0)
[2023-11-23 10:18] LABS: Basophils Percent Auto 0.5 % (0.2-2.0); Eosinophils Absolute Auto 0.3 10^3/uL (0.0-0.7); Eosinophils Percent Auto 5.5 % (0.9-7.0); Hematocrit 38.3 % (42.0-54.0); Hemoglobin 12.9 g/dL (14.0-18.0); Immature Granulocytes Abs Auto 0.01 10^3/uL (0.00-0.03); Immature Granulocytes Pct Auto 0.2 % (0.0-0.5); Lymphocytes Absolute Auto 2.6 10^3/uL (1.2-3.8); Lymphocytes Percent Auto 43.8 % (20.5-60.0); Mean Corpuscular HGB Conc 33.7 g/dL (29.9-35.2); Mean Platelet Volume 9.4 fL (9.5-13.5); Monocytes Absolute Auto 0.5 10^3/uL (0.3-0.8); Monocytes Percent Auto 8.8 % (1.7-12.0); Neutrophils Absolute Auto 2.4 10^3/uL (1.4-6.5); Neutrophils Percent Auto 41.2 % (43.0-75.0); Platelet Count 230 10^3/uL (150-450); Red Blood Count 4.03 10^6/uL (4.70-6.10); Red Cell Distribution Width 12.6 % (11.0-15.0); White Blood Count 5.8 10^3/uL (4.0-11.0)
[2023-11-23 10:27] LABS: Estimated Average Glucose 117 mg/dL; Glycohemoglobin A1C 5.7 % (4.5-6.2)
[2023-11-23 10:44] LABS: Microalbumin Urine Random <1.3 mg/dL (<=30.0)
[2023-11-23 10:50] LABS: Bacteria Urine NONE SEEN #/HPF (NONE SEEN); Mucus Urine NONE SEEN (NONE SEEN); RBC Urine NONE SEEN #/HPF (0-2); Squamous Epithelial Cell Urine RARE #/LPF (NONE/RARE); WBC Urine NONE SEEN #/HPF (NONE SEEN)
[2023-11-23 10:52] LABS: Alanine Aminotransferase 28 U/L (16-63); Albumin Globulin Ratio 1.4; Albumin Level 4.1 g/dL (3.4-5.0); Alkaline Phosphatase 56 U/L (46-116); Anion Gap 14.2; Aspartate Amino Transferase 22 U/L (15-37); BUN Creatinine Ratio 21.3; Bilirubin Total 0.5 mg/dL (0.2-1.0); Carbon Dioxide 26.2 mmol/L (21.0-32.0); Chloride 97 mmol/L (98-107); Chol HDL Ratio 1.6; Cholesterol 129 mg/dL (<=200); Estimated GFR (African America >60 (>=60); Estimated GFR (Non-African Ame >60 (>=60); Glucose 101 mg/dL (74-106); HDL Cholesterol 83 mg/dL (40-60); Potassium 4.4 mmol/L (3.5-5.1); Sodium 133 mmol/L (136-145); Total Protein 7.1 g/dL (6.4-8.2); Triglycerides 26 mg/dL (<=150); Uric Acid 5.8 mg/dL (3.5-7.2); VLDL CHOLESTEROL 5.2 mg/dL
== END 2023-11-23 09:33 | disposition home or self-care (01) ==
LOC: LAB 09:33
PROVIDERS: PCP Internal Medicine; Visit Provider Internal Medicine
DX: E78.00 Pure hypercholesterolemia, unspecified (principal); E11.9 Type 2 diabetes mellitus without complications; I10 Essential (primary) hypertension; Z87.39 Personal history of other diseases of the musculoskeletal system and connective tissue
CPT/HCPCS: 36415; 80053; 80061; 81001; 82043; 82570; 83036; 84550; 85025

== ENCOUNTER 2023-11-24 14:31 | Outpatient (OUT) | payer OTHER, SELFPAY ==
[2023-11-24 15:29] LABS: Percent Iron Saturation 28.1 %
[2023-11-25 14:09] LABS: Free Kappa Lt Chains,S 16.4 mg/L (3.3-19.4); Free Lambda Lt Chains,S 12.5 mg/L (5.7-26.3); Kappa/Lambda Ratio,S 1.31 (0.26-1.65)
[2023-11-25 15:09] LABS: Immunoglobulin A, Qn, Serum 150 mg/dL (61-437); Immunoglobulin G, Qn, Serum 999 mg/dL (603-1613); Immunoglobulin M, Qn, Serum 176 mg/dL (20-172)
== END 2023-11-24 14:32 | disposition home or self-care (01) ==
LOC: LAB 14:34
PROVIDERS: PCP Internal Medicine; Visit Provider Internal Medicine
DX: Z79.899 Other long term (current) drug therapy (principal); D64.9 Anemia, unspecified
CPT/HCPCS: 36415; 82607; 82728; 82746; 83521; 83540; 83550